=== PATIENT | female | born 1945 | race African-American/Black ===

== ENCOUNTER 2020-09-30 12:16 | Emergency (ER) | payer MEDICARE ==
[2020-09-30 14:10] LABS: ALT (SGPT) 19 U/L (8-55); AST (SGOT) 23 U/L (5-34); Acetaminophen Less than 6.0 mcg/mL (10.0-30.0); Albumin 3.1 g/dL (3.4-4.8); Alcohol Less than 10 mg/dL (Less than 10); Alkaline Phosphatase 116 U/L (40-110); Anion Gap 16 mmol/L (10-20); BUN (Urea Nitrogen) 14 mg/dL (9.8-20.1); Bilirubin, Total 1.2 mg/dL (0.2-1.2); Calc. Creatinine Clearance 0 mL/min (70-130); Calcium 8.5 mg/dL (7.8-10.44); Carbon Dioxide 28 mmol/L (23-31); Chloride 100 mmol/L (98-107); Globulin 3.3 g/dL (2.4-3.5); Glucose 141 mg/dL (83-110); Potassium 3.1 mmol/L (3.5-5.1); Protein, Total 6.4 g/dL (5.8-8.1); Salicylate Less than 8.0 mg/dL (15.0-30.0); Sodium 141 mmol/L (136-145)
[2020-09-30 14:14] LABS: #Monocytes 0.4 10x3/uL (0.0-1.1); #Neutrophils 2.7 10x3/uL (1.5-8.4); %Basophils 0.5 % (0.0-2.0); %Eosinophils 0.3 % (0.0-6.0); %Lymphocytes 21.8 % (18.0-47.0); %Monocytes 9.1 % (0.0-10.0); Hemoglobin 9.5 g/dL (12.0-15.5); Mean Corpuscular HGB CONC 34.9 g/dL (32.0-36.0); Mean Corpuscular Hemoglobin 27.2 pg (27.0-33.0); Mean Corpuscular Volume 77.9 fl (81.6-98.3); Mean Platelet Volume 10.9 fl (7.4-10.4); Platelet Count 83 10x3/uL (150-450); RBC Distribution Width 15.9 % (11.5-14.5); Red Blood Cell (RBC) Count 3.49 10x6/uL (3.90-5.03); White Blood Cell (WBC) Count 3.9 10x3/uL (3.5-10.5)
== END 2020-09-30 15:55 | disposition home or self-care (01) ==
LOC: CSHERS 12:16
DX: R41.82 Altered mental status, unspecified (principal); K74.60 Unspecified cirrhosis of liver; I12.0 Hypertensive chronic kidney disease with stage 5 chronic kidney disease or end stage renal disease; N18.6 End stage renal disease; Z79.899 Other long term (current) drug therapy
CPT/HCPCS: 70450; 80053; 80307; 82140; 85025

== ENCOUNTER 2021-01-27 08:46 | Inpatient (IN) | payer MEDICARE ==
[2021-01-27 09:47] LABS: ALT (SGPT) 28 U/L (8-55); AST (SGOT) 32 U/L (5-34); Albumin 2.8 g/dL (3.4-4.8); Alkaline Phosphatase 180 U/L (40-110); Anion Gap 24 mmol/L (10-20); BUN (Urea Nitrogen) 49 mg/dL (9.8-20.1); Bilirubin, Total 1.2 mg/dL (0.2-1.2); Calc. Creatinine Clearance 0 mL/min (70-130); Calcium 8.3 mg/dL (7.8-10.44); Carbon Dioxide 18 mmol/L (23-31); Chloride 105 mmol/L (98-107); Globulin 3.9 g/dL (2.4-3.5); Glucose 160 mg/dL (83-110); Hemoglobin 10.2 g/dL (12.0-15.5); Mean Corpuscular HGB CONC 35.1 g/dL (32.0-36.0); Mean Corpuscular Hemoglobin 28.5 pg (27.0-33.0); Mean Corpuscular Volume 81.3 fl (81.6-98.3); Mean Platelet Volume 12.9 fl (7.4-10.4); Platelet Count 67 10x3/uL (150-450); Potassium 4.2 mmol/L (3.5-5.1); Protein, Total 6.7 g/dL (5.8-8.1); RBC Distribution Width 16.5 % (11.5-14.5); Red Blood Cell (RBC) Count 3.58 10x6/uL (3.90-5.03); Sodium 143 mmol/L (136-145); White Blood Cell (WBC) Count 3.8 10x3/uL (3.5-10.5)
[2021-01-27 09:51] LABS: #Monocytes 0.3 10x3/uL (0.0-1.1); #Neutrophils 2.6 10x3/uL (1.5-8.4); %Basophils 0.8 % (0.0-2.0); %Lymphocytes 21.9 % (18.0-47.0); %Monocytes 8.9 % (0.0-10.0); %Neutrophils 66.6 % (40.0-75.0)
[2021-01-27 09:52] LABS: Magnesium 3.1 mg/dL (1.6-2.6)
[2021-01-27 09:58] LABS: Phosphorus 9.9 mg/dL (2.3-4.7)
[2021-01-27 11:28] LABS: CKMB 2.2 ng/mL (0-6.6)
[2021-01-27] MEDS ORDERED: Dextrose 5% in Water 1,000 ML IV PRN (11:49)
[2021-01-27] MEDS ORDERED: Dextrose 50% Abboject 50 ML SYRINGE SLOW IVP PRN (11:49)
[2021-01-27] MEDS ORDERED: HumaLOG 300 UNITS/3 ML VIAL SC PRN ×2 (11:49)
[2021-01-27 14:40] VITALS: BMI 26.2
[2021-01-27] MEDS ORDERED: Heparin 10,000 UNITS/ 10 ML VIAL FS SCH (15:00)
[2021-01-27] MEDS: Rifaximin 550 MG TAB PO SCH (23:50)
[2021-01-28 01:10] LABS: SARS-CoV-2 NAA Rapid Test Not Detected (NotDetected)
[2021-01-28] MEDS ORDERED: Nitroglycerin 2% Ointment 1 INCH/1 GM Packet TOP SCH (02:45)
[2021-01-28] MEDS ORDERED: Nitroglycerin 2% Ointment 1 INCH/1 GM Packet ONE (03:12)
[2021-01-28 06:16] LABS: Anion Gap 17 mmol/L (10-20); BUN (Urea Nitrogen) 18 mg/dL (9.8-20.1); Calc. Creatinine Clearance 7 mL/min (70-130); Calcium 8.8 mg/dL (7.8-10.44); Carbon Dioxide 27 mmol/L (23-31); Chloride 101 mmol/L (98-107); Glucose 102 mg/dL (83-110); Potassium 3.6 mmol/L (3.5-5.1); Sodium 141 mmol/L (136-145)
[2021-01-28 06:22] LABS: #Eosinphils 0.1 10x3/uL (0.0-0.5); #Monocytes 0.5 10x3/uL (0.0-1.1); #Neutrophils 1.6 10x3/uL (1.5-8.4); %Basophils 0.6 % (0.0-2.0); %Eosinophils 1.9 % (0.0-6.0); %Lymphocytes 30.3 % (18.0-47.0); %Monocytes 14.8 % (0.0-10.0); %Neutrophils 52.1 % (40.0-75.0); Hemoglobin 9.3 g/dL (12.0-15.5); Mean Corpuscular HGB CONC 33.3 g/dL (32.0-36.0); Mean Corpuscular Hemoglobin 27.2 pg (27.0-33.0); Mean Corpuscular Volume 81.6 fl (81.6-98.3); Mean Platelet Volume 11.3 fl (7.4-10.4); Platelet Count 63 10x3/uL (150-450); RBC Distribution Width 16.9 % (11.5-14.5); Red Blood Cell (RBC) Count 3.42 10x6/uL (3.90-5.03); White Blood Cell (WBC) Count 3.1 10x3/uL (3.5-10.5)
[2021-01-28] MEDS: Rifaximin 550 MG TAB PO SCH (08:28)
[2021-01-28 09:29] LABS: Phosphorus 5.8 mg/dL (2.3-4.7)
[2021-01-28 13:57] LABS: SARS-CoV-2 PCR by NAA Not Detected (NotDetected)
[2021-01-28 15:40] VITALS: BP 146/65; TEMP 98.2
== END 2021-01-28 16:36 | disposition home or self-care (01) | DRG 441 ==
LOC: CSHERS 08:46 → CSHTELE 13:13
PROVIDERS: ADMIT Family Medicine; ATTEND Hospitalist
PROC: 5A1D70Z Performance of Urinary Filtration, Intermittent, Less than 6 Hours Per Day (ICD-10-PCS; principal; 2021-01-28)
DX: K72.00 Acute and subacute hepatic failure without coma (principal); N18.6 End stage renal disease; K76.6 Portal hypertension; I85.00 Esophageal varices without bleeding; I12.0 Hypertensive chronic kidney disease with stage 5 chronic kidney disease or end stage renal disease; K70.30 Alcoholic cirrhosis of liver without ascites; K31.89 Other diseases of stomach and duodenum; E11.22 Type 2 diabetes mellitus with diabetic chronic kidney disease; E11.65 Type 2 diabetes mellitus with hyperglycemia; Z99.2 Dependence on renal dialysis; Z79.4 Long term (current) use of insulin; D63.1 Anemia in chronic kidney disease; E11.40 Type 2 diabetes mellitus with diabetic neuropathy, unspecified; E83.39 Other disorders of phosphorus metabolism; Z20.822 Contact with and (suspected) exposure to COVID-19
CPT/HCPCS: 36415; 36416; 71045; 80048; 80053; 82140; 82553; 83735; 84100; 84484; 85025; 90935; 93005; 93010; 94760; G0257; J1644; U0002; U0003; U0005

== ENCOUNTER 2021-05-17 09:02 | Inpatient (IN) | payer MEDICARE ==
[2021-05-17 09:55] LABS: #Monocytes 0.3 10x3/uL (0.0-1.1); %Basophils 0.7 % (0.0-2.0); %Eosinophils 0.7 % (0.0-6.0); %Lymphocytes 14.6 % (18.0-47.0); %Monocytes 11.7 % (0.0-10.0); %Neutrophils 71.9 % (40.0-75.0)
[2021-05-17 09:56] LABS: Hemoglobin 8.6 g/dL (12.0-15.5); Mean Corpuscular HGB CONC 33.7 g/dL (32.0-36.0); Mean Corpuscular Hemoglobin 24.6 pg (27.0-33.0); Mean Corpuscular Volume 73.1 fl (81.6-98.3); Mean Platelet Volume 10.7 fl (7.4-10.4); Platelet Count 89 10x3/uL (150-450); RBC Distribution Width 17.5 % (11.5-14.5); Red Blood Cell (RBC) Count 3.49 10x6/uL (3.90-5.03); White Blood Cell (WBC) Count 2.7 10x3/uL (3.5-10.5)
[2021-05-17 10:00] LABS: ALT (SGPT) 15 U/L (8-55); AST (SGOT) 31 U/L (5-34); Albumin 2.9 g/dL (3.4-4.8); Alkaline Phosphatase 182 U/L (40-110); Anion Gap 18 mmol/L (10-20); BUN (Urea Nitrogen) 33 mg/dL (9.8-20.1); Calc. Creatinine Clearance 0 mL/min (70-130); Calcium 9.6 mg/dL (7.8-10.44); Carbon Dioxide 24 mmol/L (23-31); Chloride 105 mmol/L (98-107); Globulin 4.4 g/dL (2.4-3.5); Glucose 244 mg/dL (83-110); Potassium 5.1 mmol/L (3.5-5.1); Protein, Total 7.3 g/dL (5.8-8.1); Sodium 142 mmol/L (136-145)
[2021-05-17] MEDS ORDERED: Lorazepam 2 MG/ML VIAL ONE (13:21)
[2021-05-17] MEDS ORDERED: Lorazepam 2 MG/ML VIAL SLOW IVP SCH (15:00)
[2021-05-17 15:56] VITALS: BMI 28.0
[2021-05-17] MEDS: Heparin 5,000 UNITS/ML VIAL SC SCH (17:10)
[2021-05-17] MEDS ORDERED: FLU VACC QS2021-22(65YR UP)/PF 240 MCG/0.7 ML SYRINGE IM ONE (19:15)
[2021-05-17] MEDS: Simvastatin 10 MG TAB PO SCH (21:01)
[2021-05-17] MEDS: Rifaximin 550 MG TAB PO SCH (21:02)
[2021-05-17] MEDS: Carvedilol 3.125 MG TAB PO SCH (21:02)
[2021-05-18] MEDS: Heparin 5,000 UNITS/ML VIAL SC SCH (02:58)
[2021-05-18 03:47] LABS: Anion Gap 15 mmol/L (10-20); BUN (Urea Nitrogen) 13 mg/dL (9.8-20.1); Calc. Creatinine Clearance 15 mL/min (70-130); Calcium 8.7 mg/dL (7.8-10.44); Carbon Dioxide 24 mmol/L (23-31); Chloride 104 mmol/L (98-107); Glucose 133 mg/dL (83-110); Potassium 3.8 mmol/L (3.5-5.1); Sodium 139 mmol/L (136-145)
[2021-05-18 03:55] LABS: #Monocytes 0.3 10x3/uL (0.0-1.1); %Basophils 0.4 % (0.0-2.0); %Eosinophils 1.3 % (0.0-6.0); %Monocytes 15.2 % (0.0-10.0); Hemoglobin 7.6 g/dL (12.0-15.5); Mean Corpuscular HGB CONC 33.6 g/dL (32.0-36.0); Mean Corpuscular Hemoglobin 24.8 pg (27.0-33.0); Mean Corpuscular Volume 73.6 fl (81.6-98.3); Mean Platelet Volume 11.6 fl (7.4-10.4); Platelet Count 80 10x3/uL (150-450); RBC Distribution Width 17.8 % (11.5-14.5); Red Blood Cell (RBC) Count 3.07 10x6/uL (3.90-5.03); White Blood Cell (WBC) Count 2.2 10x3/uL (3.5-10.5)
[2021-05-18] MEDS: Levothyroxine Sodium 88 MCG TAB PO SCH (05:39)
[2021-05-18] MEDS ORDERED: Iron Sucrose Complex 200 MG in Sodium Chloride 0.9% 100 ML IVPB SCH (06:30)
[2021-05-18] MEDS ORDERED: Iron, Sodium Ferric Gluconate 250 MG, Admixture Fee 1 EACH in Sodium Chloride 0.9% 250 ... IVPB SCH (08:00)
[2021-05-18] MEDS: Rifaximin 550 MG TAB PO SCH ×2 (08:58→21:40)
[2021-05-18] MEDS: Spironolactone 25 MG TAB PO SCH (08:58)
[2021-05-18] MEDS: Thiamine 100 MG TAB PO SCH (08:59)
[2021-05-18] MEDS: Carvedilol 3.125 MG TAB PO SCH ×2 (08:59→21:40)
[2021-05-18] MEDS: Furosemide 40 MG TAB PO SCH (08:59)
[2021-05-18] MEDS ORDERED: EPOETIN ALFA-EPBX (ESRD) 10,000 UNIT/ML VIAL SC SCH (09:00)
[2021-05-18 12:18] LABS: SARS-CoV-2 PCR by NAA Not Detected (NotDetected)
[2021-05-18] MEDS ORDERED: Dextrose 5% in Water 1,000 ML IV PRN (14:00)
[2021-05-18] MEDS ORDERED: Dextrose 50% Abboject 50 ML SYRINGE IVP PRN (14:00)
[2021-05-18] MEDS: HumaLOG 300 UNITS/3 ML VIAL SC PRN ×2 (14:21→21:52)
[2021-05-18 16:08] LABS: Hemoglobin 6.8 g/dL (12.0-15.5)
[2021-05-18] MEDS: Benzonatate 100 MG CAP PO PRN ×2 (16:10→21:51)
[2021-05-18] MEDS: Cepastat Lozenges 1 LOZ PO PRN ×2 (17:56→21:52)
[2021-05-18] MEDS: Pantoprazole 40 MG VIAL IVP SCH (21:38)
[2021-05-18] MEDS: Simvastatin 10 MG TAB PO SCH (21:40)
[2021-05-18 21:55] LABS: Hemoglobin 7.2 g/dL (12.0-15.5)
[2021-05-19 04:35] LABS: Hemoglobin 7.7 g/dL (12.0-15.5); Mean Corpuscular HGB CONC 33.6 g/dL (32.0-36.0); Mean Corpuscular Hemoglobin 25.4 pg (27.0-33.0); Mean Corpuscular Volume 75.6 fl (81.6-98.3); Mean Platelet Volume 11.4 fl (7.4-10.4); Platelet Count 80 10x3/uL (150-450); RBC Distribution Width 17.9 % (11.5-14.5); Red Blood Cell (RBC) Count 3.03 10x6/uL (3.90-5.03)
[2021-05-19 04:37] LABS: Anion Gap 15 mmol/L (10-20); BUN (Urea Nitrogen) 22 mg/dL (9.8-20.1); Calc. Creatinine Clearance 9 mL/min (70-130); Carbon Dioxide 23 mmol/L (23-31); Chloride 105 mmol/L (98-107); Glucose 196 mg/dL (83-110); Potassium 3.7 mmol/L (3.5-5.1); Sodium 139 mmol/L (136-145)
[2021-05-19 05:01] LABS: MDiff Complete? YES
[2021-05-19 05:03] LABS: Hypochromia MODERATE=16-30 cells (100X) (0-5/hpf); Microcytosis SLIGHT = 6-15 cells (100X) (0-5/hpf); Platelet Morphology Comment Appears Decreased
[2021-05-19 05:11] LABS: Eosinophils 2 % (0-10); Lymphocytes 20 % (21-51); Monocytes 14 % (0-10); Neutrophil 64 % (42-75)
[2021-05-19] MEDS: Levothyroxine Sodium 88 MCG TAB PO SCH (05:57)
[2021-05-19] MEDS: Carvedilol 3.125 MG TAB PO SCH ×2 (05:57→21:29)
[2021-05-19] MEDS ORDERED: Lidocaine 1% PF 5 ML VIAL ONE (08:46)
[2021-05-19] MEDS ORDERED: PROPOFOL 20 ML ONE (08:46)
[2021-05-19 10:36] LABS: Hemoglobin 8.1 g/dL (12.0-15.5)
[2021-05-19] MEDS: Thiamine 100 MG TAB PO SCH (10:36)
[2021-05-19] MEDS: Rifaximin 550 MG TAB PO SCH ×2 (10:37→21:29)
[2021-05-19] MEDS: Furosemide 40 MG TAB PO SCH (10:37)
[2021-05-19] MEDS: Spironolactone 25 MG TAB PO SCH (10:37)
[2021-05-19] MEDS: Pantoprazole 40 MG VIAL IVP SCH ×2 (10:39→21:29)
[2021-05-19] MEDS: Cepastat Lozenges 1 LOZ PO PRN (10:47)
[2021-05-19 14:38] LABS: Hemoglobin 7.3 g/dL (12.0-15.5)
[2021-05-19] MEDS: HumaLOG 300 UNITS/3 ML VIAL SC PRN (17:04)
[2021-05-19] MEDS: Simvastatin 10 MG TAB PO SCH (21:29)
[2021-05-19 22:16] LABS: Hemoglobin 7.8 g/dL (12.0-15.5)
[2021-05-19] MEDS: Benzonatate 100 MG CAP PO PRN (22:58)
[2021-05-20 04:40] LABS: #Monocytes 0.4 10x3/uL (0.0-1.1); #Neutrophils 2.1 10x3/uL (1.5-8.4); %Basophils 0.7 % (0.0-2.0); %Eosinophils 1.3 % (0.0-6.0); %Lymphocytes 15.4 % (18.0-47.0); %Monocytes 12.4 % (0.0-10.0); %Neutrophils 69.5 % (40.0-75.0); Hemoglobin 7.5 g/dL (12.0-15.5); Mean Corpuscular HGB CONC 33.6 g/dL (32.0-36.0); Mean Corpuscular Hemoglobin 25.3 pg (27.0-33.0); Mean Corpuscular Volume 75.1 fl (81.6-98.3); Mean Platelet Volume 11.2 fl (7.4-10.4); Platelet Count 73 10x3/uL (150-450); RBC Distribution Width 17.9 % (11.5-14.5); Red Blood Cell (RBC) Count 2.97 10x6/uL (3.90-5.03); White Blood Cell (WBC) Count 3.1 10x3/uL (3.5-10.5)
[2021-05-20 04:42] LABS: Anion Gap 12 mmol/L (10-20); BUN (Urea Nitrogen) 14 mg/dL (9.8-20.1); Calc. Creatinine Clearance 13 mL/min (70-130); Calcium 8.6 mg/dL (7.8-10.44); Carbon Dioxide 25 mmol/L (23-31); Chloride 100 mmol/L (98-107); Glucose 273 mg/dL (83-110); Potassium 3.8 mmol/L (3.5-5.1); Sodium 133 mmol/L (136-145)
[2021-05-20] MEDS: Levothyroxine Sodium 88 MCG TAB PO SCH (06:19)
[2021-05-20] MEDS: HumaLOG 300 UNITS/3 ML VIAL SC PRN ×2 (06:21→15:20)
[2021-05-20] MEDS ORDERED: Iron, Sodium Ferric Gluconate 250 MG in Sodium Chloride 0.9% 250 ML 250 ML IVPB SCH (07:30)
[2021-05-20] MEDS: Spironolactone 25 MG TAB PO SCH (09:30)
[2021-05-20] MEDS: Benzonatate 100 MG CAP PO PRN ×2 (09:30→15:21)
[2021-05-20] MEDS: Pantoprazole 40 MG VIAL IVP SCH (09:30)
[2021-05-20] MEDS: Carvedilol 3.125 MG TAB PO SCH (09:30)
[2021-05-20] MEDS: Cepastat Lozenges 1 LOZ PO PRN ×2 (09:30→15:21)
[2021-05-20] MEDS: Thiamine 100 MG TAB PO SCH (09:30)
[2021-05-20] MEDS: Rifaximin 550 MG TAB PO SCH (09:30)
[2021-05-20] MEDS: Furosemide 40 MG TAB PO SCH (09:30)
[2021-05-20 13:06] LABS: Hemoglobin 8.3 g/dL (12.0-15.5)
[2021-05-20 15:40] VITALS: BP 131/55; TEMP 98.1
== END 2021-05-20 19:36 | disposition home or self-care (01) | DRG 441 ==
LOC: CSHERS 09:02 → CSHTELE 13:32
PROVIDERS: ADMIT Family Medicine; ATTEND Physician Assistant
PROC: 5A1D70Z Performance of Urinary Filtration, Intermittent, Less than 6 Hours Per Day (ICD-10-PCS; 2021-05-17)
PROC: 0DJ08ZZ Inspection of Upper Intestinal Tract, Via Natural or Artificial Opening Endoscopic (ICD-10-PCS; principal; 2021-05-19)
PROC: 30233N1 Transfusion of Nonautologous Red Blood Cells into Peripheral Vein, Percutaneous Approach (ICD-10-PCS; 2021-05-19)
PROC: 5A1D70Z Performance of Urinary Filtration, Intermittent, Less than 6 Hours Per Day (ICD-10-PCS; 2021-05-19)
DX: K72.90 Hepatic failure, unspecified without coma (principal); N18.6 End stage renal disease; I12.0 Hypertensive chronic kidney disease with stage 5 chronic kidney disease or end stage renal disease; K92.1 Melena; K76.6 Portal hypertension; D61.818 Other pancytopenia; D62 Acute posthemorrhagic anemia; E78.5 Hyperlipidemia, unspecified; E11.22 Type 2 diabetes mellitus with diabetic chronic kidney disease; K70.30 Alcoholic cirrhosis of liver without ascites; D63.1 Anemia in chronic kidney disease; E03.9 Hypothyroidism, unspecified; E11.65 Type 2 diabetes mellitus with hyperglycemia; K31.89 Other diseases of stomach and duodenum; Z20.822 Contact with and (suspected) exposure to COVID-19; Z79.4 Long term (current) use of insulin; Z79.899 Other long term (current) drug therapy; Z99.2 Dependence on renal dialysis; Z90.710 Acquired absence of both cervix and uterus
CPT/HCPCS: 36415; 36416; 36430; 51701; 70450; 71045; 80048; 80053; 82140; 82274; 84443; 85025; 86850; 86900; 86901; 86922; 90935; 93005; C9113; G0257; J1644; J1815; J2060; J2704; J2916; J7050; P9016; Q5105; U0003; U0005

== ENCOUNTER 2021-07-10 14:48 | Observation (INO) | payer MEDICARE ==
[2021-07-10 15:57] LABS: #Eosinphils 0.1 10x3/uL (0.0-0.5); #Monocytes 0.3 10x3/uL (0.0-1.1); #Neutrophils 2.7 10x3/uL (1.5-8.4); %Basophils 0.3 % (0.0-2.0); %Eosinophils 1.5 % (0.0-6.0); %Lymphocytes 6.6 % (18.0-47.0); %Monocytes 9.9 % (0.0-10.0); %Neutrophils 81.1 % (40.0-75.0); Hemoglobin 5.3 g/dL (12.0-15.5); Mean Corpuscular HGB CONC 33.1 g/dL (32.0-36.0); Mean Corpuscular Hemoglobin 25.1 pg (27.0-33.0); Mean Corpuscular Volume 75.8 fl (81.6-98.3); Red Blood Cell (RBC) Count 2.11 10x6/uL (3.90-5.03); White Blood Cell (WBC) Count 3.3 10x3/uL (3.5-10.5)
[2021-07-10 15:58] LABS: Platelet Count 73 10x3/uL (150-450)
[2021-07-10 16:10] LABS: ALT (SGPT) 16 U/L (8-55); AST (SGOT) 28 U/L (5-34); Albumin 1.9 g/dL (3.4-4.8); Alkaline Phosphatase 195 U/L (40-110); Anion Gap 16 mmol/L (10-20); BUN (Urea Nitrogen) 30 mg/dL (9.8-20.1); Bilirubin, Total 1.4 mg/dL (0.2-1.2); Calc. Creatinine Clearance 0 mL/min (70-130); Calcium 8.3 mg/dL (7.8-10.44); Carbon Dioxide 21 mmol/L (23-31); Chloride 105 mmol/L (98-107); Globulin 4.1 g/dL (2.4-3.5); Glucose 357 mg/dL (83-110); Potassium 5.2 mmol/L (3.5-5.1); Sodium 137 mmol/L (136-145)
[2021-07-10 16:20] LABS: Hypochromia SLIGHT = 6-15 cells (100X) (0-5/hpf); Target Cells SLIGHT = 2-5 cells (100X) (0-1/hpf)
[2021-07-10 16:24] LABS: Platelet Morphology Comment Appears Decreased
[2021-07-10] MEDS ORDERED: Acetaminophen 650 MG Suppository PR PRN (18:22)
[2021-07-10] MEDS ORDERED: Acetaminophen 325 MG TAB PO PRN (18:22)
[2021-07-10] MEDS ORDERED: Ondansetron ODT 4 MG TAB PO PRN (18:22)
[2021-07-10] MEDS ORDERED: Ondansetron PF 4 MG/2 ML Vial IVP PRN (18:22)
[2021-07-10] MEDS ORDERED: Simvastatin 10 MG TAB PO SCH (21:00)
[2021-07-10 21:15] LABS: SARS-CoV-2 NAA Rapid Test DETECTED (NotDetected)
[2021-07-10] MEDS: Rifaximin 550 MG TAB PO SCH (23:16)
[2021-07-11] MEDS ORDERED: Levothyroxine Sodium 75 MCG TAB PO SCH (06:00)
[2021-07-11 06:31] LABS: #Monocytes 0.3 10x3/uL (0.0-1.1); %Basophils 0.8 % (0.0-2.0); %Eosinophils 1.5 % (0.0-6.0); %Lymphocytes 9.9 % (18.0-47.0); %Monocytes 12.5 % (0.0-10.0); %Neutrophils 74.9 % (40.0-75.0); Hemoglobin 7.1 g/dL (12.0-15.5); Mean Corpuscular Hemoglobin 26.9 pg (27.0-33.0); Mean Corpuscular Volume 79.2 fl (81.6-98.3); Platelet Count 64 10x3/uL (150-450); RBC Distribution Width 17.1 % (11.5-14.5); Red Blood Cell (RBC) Count 2.64 10x6/uL (3.90-5.03); White Blood Cell (WBC) Count 2.6 10x3/uL (3.5-10.5)
[2021-07-11 06:53] LABS: Anion Gap 13 mmol/L (10-20); BUN (Urea Nitrogen) 16 mg/dL (9.8-20.1); Calc. Creatinine Clearance 0 mL/min (70-130); Calcium 7.8 mg/dL (7.8-10.44); Carbon Dioxide 24 mmol/L (23-31); Chloride 107 mmol/L (98-107); Glucose 285 mg/dL (83-110); Potassium 4.3 mmol/L (3.5-5.1); Sodium 140 mmol/L (136-145)
[2021-07-11] MEDS ORDERED: Amlodipine 5 MG TAB ONE (07:57)
[2021-07-11] MEDS: Rifaximin 550 MG TAB PO SCH (08:56)
[2021-07-11 08:57] VITALS: BP 137/59
[2021-07-11] MEDS ORDERED: Lantus 1000 UNITS/10 ML VIAL SC SCH ×2 (09:00→21:00)
[2021-07-11] MEDS ORDERED: Amlodipine 5 MG TAB PO SCH (09:00)
[2021-07-11] MEDS ORDERED: Insulin Regular 300 UNITS/3 ML VIAL SC PRN ×2 (09:16)
[2021-07-11] MEDS ORDERED: Dextrose 5% in Water 1,000 ML IV PRN (09:16)
[2021-07-11] MEDS ORDERED: Dextrose 50% Abboject 50 ML SYRINGE SLOW IVP PRN (09:16)
[2021-07-11 09:35] LABS: Iron 93 ug/dL (50-170); Iron Binding Capacity, Total 121 mcg/dL (265-497)
[2021-07-11 16:44] LABS: #Monocytes 0.5 10x3/uL (0.0-1.1); #Neutrophils 2.7 10x3/uL (1.5-8.4); %Basophils 0.6 % (0.0-2.0); %Eosinophils 1.2 % (0.0-6.0); %Lymphocytes 6.4 % (18.0-47.0); %Monocytes 13.4 % (0.0-10.0); %Neutrophils 77.5 % (40.0-75.0); Hemoglobin 8.6 g/dL (12.0-15.5); Mean Corpuscular HGB CONC 33.7 g/dL (32.0-36.0); Mean Corpuscular Volume 79.9 fl (81.6-98.3); Platelet Count 72 10x3/uL (150-450); RBC Distribution Width 17.7 % (11.5-14.5); Red Blood Cell (RBC) Count 3.19 10x6/uL (3.90-5.03); White Blood Cell (WBC) Count 3.4 10x3/uL (3.5-10.5)
== END 2021-07-11 17:17 | disposition home or self-care (01) ==
LOC: CSHERS 14:48 → CSHERHOLD 18:12 → INTOOBSV 20:16 → UNDOADMOB 20:16 → CSHERHOLD 20:16
PROVIDERS: ADMIT Family Medicine; ATTEND Physician Assistant
DX: E11.22 Type 2 diabetes mellitus with diabetic chronic kidney disease (principal); I12.0 Hypertensive chronic kidney disease with stage 5 chronic kidney disease or end stage renal disease; N18.6 End stage renal disease; D63.1 Anemia in chronic kidney disease; U07.1 COVID-19; K70.30 Alcoholic cirrhosis of liver without ascites; D61.818 Other pancytopenia; E87.5 Hyperkalemia; E03.9 Hypothyroidism, unspecified; E78.5 Hyperlipidemia, unspecified
CPT/HCPCS: 36430 ×2; 80048; 80053; 82607; 82728; 82746; 83540; 83550; 84443; 85025 ×3; 86850; 86900; 86901; 86902; 86920; 86922; 99284; G0378 ×2; P9016 ×2; U0002; 36415; 90935; G0257; J1815

== ENCOUNTER 2021-07-17 11:41 | Observation (INO) | payer MEDICARE ==
[2021-07-17 12:42] LABS: #Eosinphils 0.1 10x3/uL (0.0-0.5); #Monocytes 0.4 10x3/uL (0.0-1.1); #Neutrophils 2.3 10x3/uL (1.5-8.4); %Basophils 0.7 % (0.0-2.0); %Eosinophils 1.6 % (0.0-6.0); %Lymphocytes 8.1 % (18.0-47.0); %Monocytes 14.3 % (0.0-10.0); Hemoglobin 8.7 g/dL (12.0-15.5); Mean Corpuscular HGB CONC 34.9 g/dL (32.0-36.0); Mean Corpuscular Hemoglobin 27.8 pg (27.0-33.0); Mean Corpuscular Volume 79.6 fl (81.6-98.3); Mean Platelet Volume 11.5 fl (7.4-10.4); Platelet Count 67 10x3/uL (150-450); RBC Distribution Width 19.9 % (11.5-14.5); Red Blood Cell (RBC) Count 3.13 10x6/uL (3.90-5.03); White Blood Cell (WBC) Count 3.1 10x3/uL (3.5-10.5)
[2021-07-17 12:46] LABS: ALT (SGPT) 19 U/L (8-55); AST (SGOT) 35 U/L (5-34); Alkaline Phosphatase 250 U/L (40-110); Anion Gap 12 mmol/L (10-20); BUN (Urea Nitrogen) 11 mg/dL (9.8-20.1); Bilirubin, Total 1.6 mg/dL (0.2-1.2); Calc. Creatinine Clearance 0 mL/min (70-130); Calcium 7.5 mg/dL (7.8-10.44); Carbon Dioxide 24 mmol/L (23-31); Chloride 104 mmol/L (98-107); Globulin 4.7 g/dL (2.4-3.5); Glucose 108 mg/dL (83-110); Potassium 4.4 mmol/L (3.5-5.1); Protein, Total 6.7 g/dL (5.8-8.1); Sodium 136 mmol/L (136-145)
[2021-07-17 12:55] LABS: Platelet Morphology Comment Appears Decreased
[2021-07-17 12:56] LABS: Ovalocytes SLIGHT = 2-5 cells (100X) (0-1/hpf)
[2021-07-17] MEDS ORDERED: Azithromycin 500 MG VIAL ONE (13:54)
[2021-07-17] MEDS ORDERED: cefTRIAXone\\ROCEPHIN 1 GM VIAL ONE (13:54)
[2021-07-17 14:09] LABS: SARS-CoV-2 NAA Rapid Test DETECTED (NotDetected)
[2021-07-17] MEDS ORDERED: Ondansetron PF 4 MG/2 ML Vial IVP PRN (17:01)
[2021-07-17] MEDS ORDERED: Acetaminophen 325 MG TAB PO PRN (17:01)
[2021-07-17] MEDS ORDERED: Dextrose 50% Abboject 50 ML SYRINGE SLOW IVP PRN (17:14)
[2021-07-17] MEDS ORDERED: Dextrose 5% in Water 1,000 ML IV PRN (17:14)
[2021-07-17] MEDS ORDERED: Sodium Chloride 0.9% 1,000 ML IV SCH (17:15)
[2021-07-17 18:28] LABS: Lactic Acid 3.3 mmol/L (0.5-2.2)
[2021-07-17] MEDS: guaiFENesin ER 600 MG TAB PO SCH (23:04)
[2021-07-17] MEDS: Simvastatin 10 MG TAB PO SCH (23:05)
[2021-07-17] MEDS: Rifaximin 550 MG TAB PO SCH (23:05)
[2021-07-17] MEDS: HumaLOG 300 UNITS/3 ML VIAL SC PRN (23:06)
[2021-07-17] MEDS: Lantus 1000 UNITS/10 ML VIAL SC SCH (23:06)
[2021-07-17] MEDS: Carvedilol 3.125 MG TAB PO SCH (23:07)
[2021-07-18 00:41] VITALS: BMI 25.8
[2021-07-18] MEDS: Levothyroxine Sodium 75 MCG TAB PO SCH (05:24)
[2021-07-18 05:31] LABS: #Eosinphils 0.1 10x3/uL (0.0-0.5); #Monocytes 0.4 10x3/uL (0.0-1.1); %Basophils 0.1 % (0.0-2.0); %Lymphocytes 3.8 % (18.0-47.0); %Neutrophils 88.7 % (40.0-75.0); Hemoglobin 7.9 g/dL (12.0-15.5); Mean Corpuscular HGB CONC 33.5 g/dL (32.0-36.0); Mean Corpuscular Hemoglobin 27.5 pg (27.0-33.0); Mean Corpuscular Volume 82.2 fl (81.6-98.3); RBC Distribution Width 20.4 % (11.5-14.5); Red Blood Cell (RBC) Count 2.87 10x6/uL (3.90-5.03); White Blood Cell (WBC) Count 6.8 10x3/uL (3.5-10.5)
[2021-07-18 05:36] LABS: Anion Gap 12 mmol/L (10-20); BUN (Urea Nitrogen) 20 mg/dL (9.8-20.1); Calc. Creatinine Clearance 10 mL/min (70-130); Calcium 7.9 mg/dL (7.8-10.44); Carbon Dioxide 25 mmol/L (23-31); Chloride 107 mmol/L (98-107); Glucose 160 mg/dL (83-110); Potassium 4.8 mmol/L (3.5-5.1); Sodium 139 mmol/L (136-145)
[2021-07-18 05:51] LABS: Platelet Count 60 10x3/uL (150-450)
[2021-07-18] MEDS ORDERED: Enoxaparin Sodium 30 MG/0.3 ML SYRINGE SC SCH (09:00)
[2021-07-18] MEDS ORDERED: EPOETIN ALFA-EPBX (ESRD) 10,000 UNIT/ML VIAL SC SCH (09:00)
[2021-07-18] MEDS: Zinc Sulfate 220 MG CAP PO SCH (09:12)
[2021-07-18] MEDS: Cholecalciferol 1,000 UNITS (25 MCG) TAB PO SCH (09:13)
[2021-07-18] MEDS: Rifaximin 550 MG TAB PO SCH ×2 (09:13→21:11)
[2021-07-18] MEDS: guaiFENesin ER 600 MG TAB PO SCH ×2 (09:13→21:11)
[2021-07-18] MEDS: Ascorbic Acid 500 mg Chewable Tablet PO SCH (09:13)
[2021-07-18] MEDS: Amlodipine 5 MG TAB PO SCH (09:13)
[2021-07-18] MEDS: Carvedilol 3.125 MG TAB PO SCH ×2 (09:13→21:11)
[2021-07-18] MEDS: Lantus 1000 UNITS/10 ML VIAL SC SCH ×2 (09:14→21:12)
[2021-07-18 11:07] LABS: Lactic Acid 2.5 mmol/L (0.5-2.2)
[2021-07-18] MEDS ORDERED: Sodium Chloride 0.9% 1,000 ML IV SCH ×3 (12:00→17:45)
[2021-07-18] MEDS ORDERED: cefTRIAXone\\ROCEPHIN 1 GM in Sodium Chloride 0.9% 100 ML IVPB SCH (14:00)
[2021-07-18] MEDS ORDERED: Azithromycin 500 MG in Sodium Chloride 0.9% 250 ML 250 ML IVPB SCH (14:00)
[2021-07-18 16:50] LABS: Lactic Acid 2.8 mmol/L (0.5-2.2)
[2021-07-18] MEDS: HumaLOG 300 UNITS/3 ML VIAL SC PRN ×2 (17:00→21:12)
[2021-07-18] MEDS: Heparin 5,000 UNITS/ML VIAL SC SCH (21:10)
[2021-07-18] MEDS: Simvastatin 10 MG TAB PO SCH (21:11)
[2021-07-19] MEDS: Levothyroxine Sodium 75 MCG TAB PO SCH (06:21)
[2021-07-19] MEDS: HumaLOG 300 UNITS/3 ML VIAL SC PRN ×2 (06:21→13:30)
[2021-07-19 06:34] LABS: Lactic Acid 2.1 mmol/L (0.5-2.2)
[2021-07-19 06:35] LABS: Anion Gap 14 mmol/L (10-20); BUN (Urea Nitrogen) 27 mg/dL (9.8-20.1); Calc. Creatinine Clearance 8 mL/min (70-130); Carbon Dioxide 22 mmol/L (23-31); Chloride 105 mmol/L (98-107); Glucose 227 mg/dL (83-110); Potassium 4.5 mmol/L (3.5-5.1); Sodium 136 mmol/L (136-145)
[2021-07-19 07:11] LABS: Mean Corpuscular HGB CONC 32.5 g/dL (32.0-36.0); Mean Corpuscular Hemoglobin 26.8 pg (27.0-33.0); Mean Corpuscular Volume 82.6 fl (81.6-98.3); Platelet Count 61 10x3/uL (150-450); RBC Distribution Width 20.3 % (11.5-14.5); Red Blood Cell (RBC) Count 2.98 10x6/uL (3.90-5.03); White Blood Cell (WBC) Count 5.3 10x3/uL (3.5-10.5)
[2021-07-19 09:13] VITALS: TEMP 99.2
[2021-07-19] MEDS: Zinc Sulfate 220 MG CAP PO SCH (13:29)
[2021-07-19] MEDS: Heparin 5,000 UNITS/ML VIAL SC SCH (13:29)
[2021-07-19] MEDS: Ascorbic Acid 500 mg Chewable Tablet PO SCH (13:29)
[2021-07-19] MEDS: Carvedilol 3.125 MG TAB PO SCH (13:29)
[2021-07-19] MEDS: Cholecalciferol 1,000 UNITS (25 MCG) TAB PO SCH (13:29)
[2021-07-19] MEDS: guaiFENesin ER 600 MG TAB PO SCH (13:29)
[2021-07-19] MEDS: Amlodipine 5 MG TAB PO SCH (13:29)
[2021-07-19 13:31] VITALS: BP 128/55
[2021-07-19] MEDS: Lantus 1000 UNITS/10 ML VIAL SC SCH (13:38)
[2021-07-19] MEDS: Rifaximin 550 MG TAB PO SCH (13:55)
== END 2021-07-19 13:30 | disposition home or self-care (01) ==
LOC: CSHERS 11:41 → CSHTELE 22:40
PROVIDERS: ADMIT Internal Medicine; ATTEND Internal Medicine
DX: U07.1 COVID-19 (principal); J12.82 Pneumonia due to coronavirus disease 2019; G92.8 Other toxic encephalopathy; E11.22 Type 2 diabetes mellitus with diabetic chronic kidney disease; N18.6 End stage renal disease; K70.30 Alcoholic cirrhosis of liver without ascites; C22.0 Liver cell carcinoma; D63.1 Anemia in chronic kidney disease; Z79.899 Other long term (current) drug therapy; Z79.4 Long term (current) use of insulin
CPT/HCPCS: 70450; 71045; 80048 ×2; 80053; 82140; 82962 ×3; 83605 ×3; 85025 ×2; 85027; 87040; 93005; 94760; 96372; 97116; 97139 ×4; G0378 ×4; Q5105; U0002; 36415; 36416; 90935; G0257; J0456; J0696; J1644; J1815; J7050

== ENCOUNTER 2021-07-26 14:48 | Emergency (ER) | payer MEDICARE ==
[2021-07-26 18:22] LABS: INR-International Normal Ratio 1.1; PTT 31.7 sec (22.0-33.0); Prothrombin Time 12.6 sec (9.5-12.1)
[2021-07-26 18:26] LABS: ALT (SGPT) 21 U/L (8-55); AST (SGOT) 32 U/L (5-34); Albumin 1.8 g/dL (3.4-4.8); Alkaline Phosphatase 301 U/L (40-110); Anion Gap 14 mmol/L (10-20); BUN (Urea Nitrogen) 11 mg/dL (9.8-20.1); Bilirubin, Total 1.3 mg/dL (0.2-1.2); Calc. Creatinine Clearance 0 mL/min (70-130); Calcium 8.2 mg/dL (7.8-10.44); Carbon Dioxide 23 mmol/L (23-31); Chloride 101 mmol/L (98-107); Globulin 4.6 g/dL (2.4-3.5); Glucose 371 mg/dL (83-110); Potassium 4.2 mmol/L (3.5-5.1); Protein, Total 6.4 g/dL (5.8-8.1); Sodium 134 mmol/L (136-145)
[2021-07-26 18:33] LABS: White Blood Cell (WBC) Count 3.1 10x3/uL (3.5-10.5)
[2021-07-26 18:34] LABS: #Monocytes 0.4 10x3/uL (0.0-1.1); #Neutrophils 2.4 10x3/uL (1.5-8.4); %Basophils 0.7 % (0.0-2.0); %Eosinophils 1.3 % (0.0-6.0); %Lymphocytes 8.2 % (18.0-47.0); %Monocytes 11.5 % (0.0-10.0); %Neutrophils 77.6 % (40.0-75.0); Hemoglobin 6.5 g/dL (12.0-15.5); Mean Corpuscular HGB CONC 33.7 g/dL (32.0-36.0); Mean Corpuscular Hemoglobin 27.4 pg (27.0-33.0); Mean Corpuscular Volume 81.4 fl (81.6-98.3); Mean Platelet Volume 11.6 fl (7.4-10.4); Platelet Count 63 10x3/uL (150-450); RBC Distribution Width 19.2 % (11.5-14.5); Red Blood Cell (RBC) Count 2.37 10x6/uL (3.90-5.03)
[2021-07-26 18:56] LABS: Anisocytosis SLIGHT = 6-15 cells (100X) (0-5/hpf); Hypochromia SLIGHT = 6-15 cells (100X) (0-5/hpf); Ovalocytes SLIGHT = 2-5 cells (100X) (0-1/hpf); Tear Drops SLIGHT = 2-5 cells (100X) (0-1/hpf)
[2021-07-26 18:57] LABS: Platelet Morphology Comment Appears Decreased
== END 2021-07-26 21:41 | disposition home or self-care (01) ==
LOC: CSHERS 14:48
DX: I12.0 Hypertensive chronic kidney disease with stage 5 chronic kidney disease or end stage renal disease (principal); D63.1 Anemia in chronic kidney disease; N18.6 End stage renal disease
CPT/HCPCS: 36430; 80053; 82962; 85025; 85610; 85730; 86850; 86900; 86901; 86902; 86920; 86922; P9016; 36415; 36416; 99284

== ENCOUNTER 2021-09-08 08:39 | Inpatient (IN) | payer MEDICARE, OTHER ==
[2021-09-08 09:14] LABS: #Monocytes 0.2 10x3/uL (0.0-1.1); #Neutrophils 1.4 10x3/uL (1.5-8.4); %Basophils 1.4 % (0.0-2.0); %Eosinophils 1.4 % (0.0-6.0); %Lymphocytes 21.7 % (18.0-47.0); %Monocytes 10.4 % (0.0-10.0); %Neutrophils 64.2 % (40.0-75.0); Hemoglobin 10.4 g/dL (12.0-15.5); Mean Corpuscular HGB CONC 33.5 g/dL (32.0-36.0); Mean Corpuscular Hemoglobin 26.4 pg (27.0-33.0); Mean Corpuscular Volume 78.7 fl (81.6-98.3); Mean Platelet Volume 10.3 fl (7.4-10.4); RBC Distribution Width 20.9 % (11.5-14.5); Red Blood Cell (RBC) Count 3.94 10x6/uL (3.90-5.03); White Blood Cell (WBC) Count 2.2 10x3/uL (3.5-10.5)
[2021-09-08 09:15] LABS: Platelet Count 67 10x3/uL (150-450)
[2021-09-08 09:22] LABS: Bilirubin 1+ (Negative); Blood, Urine 25 (Negative); Clarity Clear (Clear); Glucose, Urine (Dipstick) 100 mg/dL (Negative); Ketone, Urine Negative (Negative); Leukocyte Negative (Negative); Nitrite Negative (Negative); Protein, Urine (Dipstick) 100 mg/dl (Neg-Trace)
[2021-09-08 09:29] LABS: Amphetamine Not Detected (NotDetected); Barbiturates Screen Not Detected (NotDetected); Benzodiazepine Screen Not Detected (NotDetected); Cocaine Metabolite Screen Not Detected (NotDetected); Methadone Not Detected (NotDetected); Methamphetamine Not Detected (NotDetected); Opiate Screen Not Detected (NotDetected); Oxycodone Screen Not Detected (NotDetected); Phencyclidine (PCP) Not Detected (NotDetected); THC/Cannabinoid Screen Not Detected (NotDetected); Tricyclic Screen Not Detected (NotDetected)
[2021-09-08 09:38] LABS: ALT (SGPT) 16 U/L (8-55); AST (SGOT) 33 U/L (5-34); Acetaminophen Less than 10.0 mcg/mL (10.0-30.0); Alcohol Less than 10 mg/dL (Less than 10); Alkaline Phosphatase 220 U/L (40-110); Anion Gap 15 mmol/L (10-20); BUN (Urea Nitrogen) 18 mg/dL (9.8-20.1); Bilirubin, Total 2.9 mg/dL (0.2-1.2); Calc. Creatinine Clearance 0 mL/min (70-130); Calcium 9.9 mg/dL (7.8-10.44); Carbon Dioxide 24 mmol/L (23-31); Chloride 106 mmol/L (98-107); Glucose 215 mg/dL (83-110); Potassium 4.4 mmol/L (3.5-5.1); Salicylate Less than 8.0 mg/dL (15.0-30.0); Sodium 141 mmol/L (136-145)
[2021-09-08 09:55] LABS: RBC/HPF 0-3 HPF (0-3); WBC/HPF 0-3 HPF (0-3)
[2021-09-08 09:57] LABS: Bacteria/HPF Rare-Few HPF (None Seen)
[2021-09-08 10:27] LABS: Anisocytosis SLIGHT = 6-15 cells (100X) (0-5/hpf)
[2021-09-08 10:29] LABS: Hypochromia SLIGHT = 6-15 cells (100X) (0-5/hpf); Polychromasia SLIGHT = 2-3 cells (100X) (0-2/hpf)
[2021-09-08 10:30] LABS: Platelet Morphology Comment Appears Decreased
[2021-09-08 12:11] LABS: Lactic Acid 2.7 mmol/L (0.5-2.2)
[2021-09-08] MEDS ORDERED: Acetaminophen 325 MG TAB PO PRN (14:05)
[2021-09-08] MEDS ORDERED: Ondansetron ODT 4 MG TAB PO PRN (14:05)
[2021-09-08] MEDS ORDERED: Dextrose 5% in Water 1,000 ML IV PRN (14:08)
[2021-09-08] MEDS ORDERED: Dextrose 50% Abboject 50 ML SYRINGE SLOW IVP PRN (14:08)
[2021-09-08] MEDS ORDERED: HumaLOG 300 UNITS/3 ML VIAL SC PRN ×2 (14:08)
[2021-09-08] MEDS ORDERED: Lorazepam 2 MG/ML VIAL ONE ×3 (14:09→15:18)
[2021-09-08] MEDS ORDERED: Lorazepam 2 MG/ML VIAL SLOW IVP SCH (15:00)
[2021-09-08 18:24] VITALS: BMI 27.5
[2021-09-09] MEDS: Carvedilol 3.125 MG TAB PO SCH ×3 (01:42→21:17)
[2021-09-09] MEDS: Simvastatin 10 MG TAB PO SCH ×2 (01:46→21:17)
[2021-09-09] MEDS: Levothyroxine Sodium 75 MCG TAB PO SCH (06:53)
[2021-09-09] MEDS: Spironolactone 25 MG TAB PO SCH (10:31)
[2021-09-09] MEDS: Amlodipine 5 MG TAB PO SCH (10:31)
[2021-09-09] MEDS: Furosemide 40 MG TAB PO SCH (10:31)
[2021-09-09] MEDS: cefTRIAXone\\ROCEPHIN 2 GM in Sodium Chloride 0.9% 100 ML IVPB SCH (11:02)
[2021-09-09 14:25] LABS: Lactic Acid 2.4 mmol/L (0.5-2.2)
[2021-09-09 16:53] LABS: Hemoglobin 8.7 g/dL (12.0-15.5)
[2021-09-09] MEDS: Rifaximin 550 MG TAB PO SCH (21:18)
[2021-09-10] MEDS: Levothyroxine Sodium 75 MCG TAB PO SCH (04:40)
[2021-09-10 05:43] LABS: Anion Gap 19 mmol/L (10-20); BUN (Urea Nitrogen) 21 mg/dL (9.8-20.1); Calc. Creatinine Clearance 9 mL/min (70-130); Calcium 9.1 mg/dL (7.8-10.44); Carbon Dioxide 21 mmol/L (23-31); Chloride 106 mmol/L (98-107); Glucose 260 mg/dL (83-110); Potassium 4.1 mmol/L (3.5-5.1); Sodium 142 mmol/L (136-145)
[2021-09-10 05:49] LABS: Hemoglobin 8.6 g/dL (12.0-15.5); Mean Corpuscular HGB CONC 33.2 g/dL (32.0-36.0); Mean Corpuscular Hemoglobin 26.4 pg (27.0-33.0); Mean Corpuscular Volume 79.4 fl (81.6-98.3); Platelet Count 49 10x3/uL (150-450); RBC Distribution Width 21.2 % (11.5-14.5); Red Blood Cell (RBC) Count 3.26 10x6/uL (3.90-5.03); White Blood Cell (WBC) Count 10.3 10x3/uL (3.5-10.5)
[2021-09-10] MEDS ORDERED: Vancomycin HCl 1 GM in Sodium Chloride 0.9% 250 ML 250 ML IVPB SCH (09:00)
[2021-09-10] MEDS ORDERED: EPOETIN ALFA-EPBX (ESRD) 10,000 UNIT/ML VIAL IVP SCH (09:00)
[2021-09-10] MEDS: Amlodipine 5 MG TAB PO SCH (10:18)
[2021-09-10] MEDS: Spironolactone 25 MG TAB PO SCH (10:18)
[2021-09-10] MEDS: Furosemide 40 MG TAB PO SCH (10:19)
[2021-09-10] MEDS: Carvedilol 3.125 MG TAB PO SCH (10:19)
[2021-09-10] MEDS: cefTRIAXone\\ROCEPHIN 2 GM in Sodium Chloride 0.9% 100 ML IVPB SCH (10:36)
[2021-09-10] MEDS: Rifaximin 550 MG TAB PO SCH (10:37)
[2021-09-10] MEDS ORDERED: Vancomycin 1 GM in Premix Bag 1 BAG IVPB SCH (10:45)
[2021-09-10] MEDS ORDERED: Vancomycin HCl 750 MG in Sodium Chloride 0.9% 250 ML 250 ML IVPB SCH (10:45)
[2021-09-10] MEDS ORDERED: Vancomycin HCl 500 MG in Sodium Chloride 0.9% 100 ML IVPB SCH (10:45)
[2021-09-10] MEDS ORDERED: Vancomycin HCl 250 MG in Sodium Chloride 0.9% 100 ML IVPB SCH (10:45)
[2021-09-10] MEDS ORDERED: HOLD VANCOMYCIN FOR LEVEL >20 FS SCH (10:45)
[2021-09-10 11:30] LABS: Hemoglobin A1c 6.5 % (4.0-6.0)
[2021-09-10 17:17] VITALS: BP 140/65; TEMP 96.3
== END 2021-09-10 17:40 | disposition home or self-care (01) | DRG 441 ==
LOC: CSHERS 08:39 → CSHTELE 14:30 → INTOOBSV 14:30 → OBSVTOIN 09-09 17:11
PROVIDERS: ADMIT Family Medicine; ATTEND Internal Medicine
PROC: 5A1D70Z Performance of Urinary Filtration, Intermittent, Less than 6 Hours Per Day (ICD-10-PCS; principal; 2021-09-08)
DX: K72.00 Acute and subacute hepatic failure without coma (principal); N18.6 End stage renal disease; K65.2 Spontaneous bacterial peritonitis; D61.811 Other drug-induced pancytopenia; C22.0 Liver cell carcinoma; I12.0 Hypertensive chronic kidney disease with stage 5 chronic kidney disease or end stage renal disease; E03.9 Hypothyroidism, unspecified; D63.1 Anemia in chronic kidney disease; T66.XXXA Radiation sickness, unspecified, initial encounter; E11.22 Type 2 diabetes mellitus with diabetic chronic kidney disease; K70.30 Alcoholic cirrhosis of liver without ascites; Z99.2 Dependence on renal dialysis; Z91.14 Patient's other noncompliance with medication regimen; Z79.899 Other long term (current) drug therapy; Z79.4 Long term (current) use of insulin; Z79.890 Hormone replacement therapy; Z83.3 Family history of diabetes mellitus
CPT/HCPCS: 36415; 36416; 51701; 70450; 71045; 80048; 80053; 80306; 80307; 81003; 81015; 82140; 83036; 83605; 83690; 84484; 85014; 85018; 85025; 85027; 87040; 87070; 87086; 87205; 90935; 93005; 94760; 96374; 96375; 96376; G0257; G0378; J0696; J1815; J2060; J3370; J3490; J7050; Q5105

== ENCOUNTER 2021-10-02 11:57 | Observation (INO) | payer OTHER ==
[2021-10-02 13:07] LABS: #Eosinphils 0.1 10x3/uL (0.0-0.5); #Monocytes 0.3 10x3/uL (0.0-1.1); #Neutrophils 1.2 10x3/uL (1.5-8.4); %Lymphocytes 21.1 % (18.0-47.0); %Monocytes 14.6 % (0.0-10.0); %Neutrophils 58.8 % (40.0-75.0); Hemoglobin 9.4 g/dL (12.0-15.5); Mean Corpuscular HGB CONC 34.7 g/dL (32.0-36.0); Mean Corpuscular Volume 80.7 fl (81.6-98.3); Mean Platelet Volume 11.5 fl (7.4-10.4); Platelet Count 54 10x3/uL (150-450); RBC Distribution Width 19.1 % (11.5-14.5); Red Blood Cell (RBC) Count 3.36 10x6/uL (3.90-5.03)
[2021-10-02 13:11] LABS: INR-International Normal Ratio 1.2; PTT 31.9 sec (22.0-33.0); Prothrombin Time 12.8 sec (9.5-12.1)
[2021-10-02 13:20] LABS: ALT (SGPT) 29 U/L (8-55); AST (SGOT) 55 U/L (5-34); Acetaminophen Less than 10.0 mcg/mL (10.0-30.0); Albumin 2.2 g/dL (3.4-4.8); Alcohol Less than 10 mg/dL (Less than 10); Alkaline Phosphatase 290 U/L (40-110); Anion Gap 14 mmol/L (10-20); BUN (Urea Nitrogen) 8 mg/dL (9.8-20.1); Bilirubin, Total 2.7 mg/dL (0.2-1.2); CK (CPK) 139 U/L (29-168); Calc. Creatinine Clearance 0 mL/min (70-130); Calcium 8.3 mg/dL (7.8-10.44); Carbon Dioxide 25 mmol/L (23-31); Chloride 102 mmol/L (98-107); Globulin 5.4 g/dL (2.4-3.5); Glucose 110 mg/dL (83-110); Lipase 144 U/L (8-78); Protein, Total 7.6 g/dL (5.8-8.1); Salicylate Less than 8.0 mg/dL (15.0-30.0); Sodium 137 mmol/L (136-145)
[2021-10-02 13:43] LABS: CKMB 2.4 ng/mL (0-6.6)
[2021-10-02] MEDS ORDERED: Benzonatate 100 MG CAP PO PRN (14:51)
[2021-10-02] MEDS ORDERED: Ondansetron PF 4 MG/2 ML Vial IVP PRN (14:53)
[2021-10-02] MEDS ORDERED: Acetaminophen 325 MG TAB PO PRN (14:53)
[2021-10-02] MEDS ORDERED: Heparin 5,000 UNITS/ML VIAL SC SCH (15:00)
[2021-10-02 16:06] LABS: Lactic Acid 2.5 mmol/L (0.5-2.2)
[2021-10-02 17:04] VITALS: BMI 25.9
[2021-10-02] MEDS ORDERED: Aspirin 81 mg Enteric Coated Tablet PO SCH (18:30)
[2021-10-02] MEDS ORDERED: Simvastatin 10 MG TAB PO SCH (21:00)
[2021-10-02] MEDS ORDERED: Atorvastatin Calcium 10 MG TAB PO SCH (21:00)
[2021-10-02] MEDS: Rifaximin 550 MG TAB PO SCH (21:35)
[2021-10-02] MEDS: Carvedilol 3.125 MG TAB PO SCH (21:35)
[2021-10-03 05:25] LABS: ALT (SGPT) 19 U/L (8-55); AST (SGOT) 41 U/L (5-34); Albumin 1.6 g/dL (3.4-4.8); Alkaline Phosphatase 208 U/L (40-110); Anion Gap 15 mmol/L (10-20); BUN (Urea Nitrogen) 12 mg/dL (9.8-20.1); Bilirubin, Total 1.8 mg/dL (0.2-1.2); Calc. Creatinine Clearance 10 mL/min (70-130); Calcium 8.4 mg/dL (7.8-10.44); Carbon Dioxide 23 mmol/L (23-31); Chloride 105 mmol/L (98-107); Globulin 4.1 g/dL (2.4-3.5); Glucose 214 mg/dL (83-110); Potassium 4.1 mmol/L (3.5-5.1); Protein, Total 5.7 g/dL (5.8-8.1); Sodium 139 mmol/L (136-145)
[2021-10-03] MEDS ORDERED: Levothyroxine Sodium 75 MCG TAB PO SCH (06:00)
[2021-10-03] MEDS ORDERED: Aspirin 81 mg Enteric Coated Tablet PO SCH (09:00)
[2021-10-03] MEDS ORDERED: Furosemide 40 MG TAB PO SCH (09:00)
[2021-10-03] MEDS ORDERED: Amlodipine 5 MG TAB PO SCH (09:00)
[2021-10-03] MEDS ORDERED: Spironolactone 25 MG TAB PO SCH (09:00)
[2021-10-03] MEDS: Carvedilol 3.125 MG TAB PO SCH (10:35)
[2021-10-03] MEDS: Rifaximin 550 MG TAB PO SCH (10:36)
[2021-10-03] MEDS ORDERED: Dextrose 50% Abboject 50 ML SYRINGE SLOW IVP PRN (15:02)
[2021-10-03] MEDS ORDERED: HumaLOG 300 UNITS/3 ML VIAL SC PRN (15:02)
[2021-10-03] MEDS ORDERED: Dextrose 5% in Water 1,000 ML IV PRN (15:02)
[2021-10-03 15:06] VITALS: TEMP 96.2
[2021-10-03 15:54] VITALS: BP 152/68
[2021-10-03 21:10] LABS: SARS-CoV-2 PCR by NAA Not Detected (NotDetected)
== END 2021-10-03 17:29 | disposition home health service (06) ==
LOC: CSHERS 11:57 → CSHTELE 16:11 → INTOOBSV 16:11
PROVIDERS: ADMIT Family Medicine; ATTEND Family Medicine
DX: K72.90 Hepatic failure, unspecified without coma (principal); R42 Dizziness and giddiness; Z79.899 Other long term (current) drug therapy; E11.22 Type 2 diabetes mellitus with diabetic chronic kidney disease; I12.0 Hypertensive chronic kidney disease with stage 5 chronic kidney disease or end stage renal disease; N18.6 End stage renal disease; Z99.2 Dependence on renal dialysis; K70.30 Alcoholic cirrhosis of liver without ascites; I85.00 Esophageal varices without bleeding; E03.9 Hypothyroidism, unspecified; D63.1 Anemia in chronic kidney disease; C22.0 Liver cell carcinoma; Z20.822 Contact with and (suspected) exposure to COVID-19
CPT/HCPCS: 70450; 70551; 71045; 80053 ×2; 80307; 82140 ×2; 82550; 82553; 82962; 83605; 83690; 84484; 85025; 85610; 85730; 93005; 97139 ×4; 99285; G0378 ×3; U0003; U0005; 36415; 36416; J1815

== ENCOUNTER 2021-10-14 17:27 | Inpatient (IN) | payer MEDICARE, OTHER ==
[~2021-10-14 17:27] MED LIST: Iopamidol 300 61% 100 ML VIAL FS ONE
[2021-10-14 18:11] LABS: #Monocytes 0.2 10x3/uL (0.0-1.1); #Neutrophils 1.9 10x3/uL (1.5-8.4); %Basophils 0.8 % (0.0-2.0); %Eosinophils 0.4 % (0.0-6.0); %Lymphocytes 11.3 % (18.0-47.0); %Monocytes 8.9 % (0.0-10.0); %Neutrophils 77.4 % (40.0-75.0); Hemoglobin 8.1 g/dL (12.0-15.5); Mean Corpuscular Hemoglobin 27.9 pg (27.0-33.0); Mean Corpuscular Volume 82.1 fl (81.6-98.3); Platelet Count 38 10x3/uL (150-450); RBC Distribution Width 18.5 % (11.5-14.5); White Blood Cell (WBC) Count 2.5 10x3/uL (3.5-10.5)
[2021-10-14 18:12] LABS: Acetaminophen Less than 10.0 mcg/mL (10.0-30.0); Alcohol Less than 10 mg/dL (Less than 10); Salicylate Less than 8.0 mg/dL (15.0-30.0)
[2021-10-14 18:12] LABS: INR-International Normal Ratio 1.3
[2021-10-14 18:12] LABS: ALT (SGPT) 19 U/L (8-55); AST (SGOT) 41 U/L (5-34); Albumin 1.8 g/dL (3.4-4.8); Alkaline Phosphatase 250 U/L (40-110); Anion Gap 15 mmol/L (10-20); BUN (Urea Nitrogen) 20 mg/dL (9.8-20.1); Calc. Creatinine Clearance 0 mL/min (70-130); Calcium 8.8 mg/dL (7.8-10.44); Carbon Dioxide 24 mmol/L (23-31); Chloride 103 mmol/L (98-107); Globulin 4.3 g/dL (2.4-3.5); Glucose 275 mg/dL (83-110); Lipase 154 U/L (8-78); Magnesium 2.2 mg/dL (1.6-2.6); Potassium 3.9 mmol/L (3.5-5.1); Protein, Total 6.1 g/dL (5.8-8.1); Sodium 138 mmol/L (136-145)
[2021-10-14 18:13] LABS: Actual Bicarbonate (HCO3a) 25.9 mEq/L (22-28); CO2 Tension 29.5 mmHg (35.0-45.0); Calcium, Ionized (arterial) 1.14 mmol/L (1.12-1.30); Carboxyhemoglobin (COHb) 0.3 gm% (0.0-3.0); Hemoglobin (Hb) 10.1 g/dL (12.0-16.0); Potassium - ABG Lab 3.9 mmol/L (3.70-5.30); Puncture Site LBA; pH, Arterial 7.56 (7.35-7.45)
[2021-10-14 18:17] LABS: ALV-art Gradient 131.875 mmHg (0-20)
[2021-10-14 18:31] LABS: CKMB 1.6 ng/mL (0-6.6)
[2021-10-14 18:39] LABS: SARS-CoV-2 NAA Rapid Test Not Detected (NotDetected)
[2021-10-14 18:42] LABS: Anisocytosis SLIGHT = 6-15 cells (100X) (0-5/hpf); Hypochromia SLIGHT = 6-15 cells (100X) (0-5/hpf); Target Cells MARKED = >16 cells (100X) (0-1/hpf)
[2021-10-14 18:43] LABS: Polychromasia SLIGHT = 2-3 cells (100X) (0-2/hpf); Stomatocytes SLIGHT = 2-5 cells (100X) (0-1/hpf)
[2021-10-14 18:44] LABS: Platelet Morphology Comment Appears Decreased
[2021-10-14 18:47] LABS: Bilirubin Neg (Negative); Blood, Urine 25 (Negative); Clarity Clear (Clear); Glucose, Urine (Dipstick) 50 mg/dL (Negative); Ketone, Urine Negative (Negative); Leukocyte Negative (Negative); Nitrite Negative (Negative); Protein, Urine (Dipstick) 100 mg/dl (Neg-Trace); Specific Gravity, Urine 1.005 (1.002-1.036); Urobilinogen Normal mg/dL (Less than 2); pH, Urine 6.5 (5.0-9.0)
[2021-10-14 18:59] LABS: Bacteria/HPF 1+ HPF (None Seen); Mucous/LPF 2+ LPF (<2+); RBC/HPF 0-3 HPF (0-3); Squamous Epithelial 0-3 HPF (0-3); Transitional Epithelial 0-3 HPF (None Seen); WBC/HPF 0-3 HPF (0-3)
[2021-10-14] MEDS ORDERED: Piperacillin/Tazobactam 4.5 GM VIAL ONE (19:39)
[2021-10-14] MEDS ORDERED: Vancomycin 1.5 GRAM/300 ML BAG 1.5 GM in Premix Bag 1 BAG IVPB SCH (20:00)
[2021-10-14] MEDS ORDERED: Dextrose 5% in Water 1,000 ML IV PRN (21:11)
[2021-10-14] MEDS ORDERED: Dextrose 50% Abboject 50 ML SYRINGE SLOW IVP PRN (21:11)
[2021-10-14] MEDS ORDERED: Pantoprazole 40 MG VIAL IVP SCH (21:15)
[2021-10-14] MEDS ORDERED: Piperacillin/Tazobactam 3.375 GM in Sodium Chloride 0.9% 100 ML IVPB SCH (21:15)
[2021-10-14] MEDS ORDERED: Octreotide Acetate 50 MCG/ML AMP SLOW IVP SCH (21:15)
[2021-10-14] MEDS ORDERED: fentaNYL Citrate-0.9 % NaCl/PF 100 ML IVPB SCH (21:30)
[2021-10-14] MEDS ORDERED: Rifaximin 550 MG TAB PER TUBE SCH (21:45)
[2021-10-14 21:48] VITALS: BMI 25.4
[2021-10-14] MEDS: Pantoprazole 80 MG in Sodium Chloride 0.9% 100 ML IVP SCH (22:45)
[2021-10-14] MEDS: Octreotide Acetate 1,250 MCG in Sodium Chloride 0.9% 250 ML 250 ML IVPB SCH (22:45)
[2021-10-15 00:58] LABS: Lactic Acid 3.6 mmol/L (0.5-2.2)
[2021-10-15] MEDS: Piperacillin/Tazobactam 3.375 GM in Sodium Chloride 0.9% 100 ML IVPB SCH ×2 (01:06→13:30)
[2021-10-15] MEDS: HumaLOG 300 UNITS/3 ML VIAL SC PRN ×2 (02:22→09:03)
[2021-10-15 05:47] LABS: Actual Bicarbonate (HCO3a) 23.8 mEq/L (22-28); Base Excess (BEa) 1.4 mEq/L (-2.0 to +3.0); CO2 Tension 29.4 mmHg (35.0-45.0); Calcium, Ionized (arterial) 1.15 mmol/L (1.12-1.30); Carboxyhemoglobin (COHb) 0.6 gm% (0.0-3.0); Hemoglobin (Hb) 8.8 g/dL (12.0-16.0); O2 Tension (PaO2), arterial 83.6 mmHg (> 70.0); Potassium - ABG Lab 3.8 mmol/L (3.70-5.30); Puncture Site RBA; pH, Arterial 7.53 (7.35-7.45)
[2021-10-15 07:48] LABS: Hemoglobin 8.8 g/dL (12.0-15.5); Mean Corpuscular HGB CONC 34.6 g/dL (32.0-36.0); Mean Corpuscular Hemoglobin 27.8 pg (27.0-33.0); Mean Corpuscular Volume 80.4 fl (81.6-98.3); Platelet Count 86 10x3/uL (150-450); RBC Distribution Width 18.8 % (11.5-14.5); Red Blood Cell (RBC) Count 3.16 10x6/uL (3.90-5.03); White Blood Cell (WBC) Count 6.5 10x3/uL (3.5-10.5)
[2021-10-15 08:17] LABS: Anion Gap 22 mmol/L (10-20); BUN (Urea Nitrogen) 25 mg/dL (9.8-20.1); Calc. Creatinine Clearance 10 mL/min (70-130); Calcium 8.9 mg/dL (7.8-10.44); Carbon Dioxide 17 mmol/L (23-31); Chloride 106 mmol/L (98-107); Potassium 4.1 mmol/L (3.5-5.1); Sodium 141 mmol/L (136-145)
[2021-10-15 08:24] LABS: Glucose 220 mg/dL (83-110)
[2021-10-15 08:53] LABS: Band 1 % (5-11); Eosinophils 1 % (0-10); Lymphocytes 9 % (21-51); Monocytes 9 % (0-10); Myelocyte 1 % (0-0); Neutrophil 79 % (42-75)
[2021-10-15 08:54] LABS: Anisocytosis SLIGHT = 6-15 cells (100X) (0-5/hpf); MDiff Complete? YES
[2021-10-15 08:55] LABS: Hypochromia SLIGHT = 6-15 cells (100X) (0-5/hpf); Large Platelets SLIGHT; Platelet Morphology Comment Appears Decreased; Target Cells MARKED = >16 cells (100X) (0-1/hpf)
[2021-10-15 08:56] LABS: Vacuoles SLIGHT
[2021-10-15] MEDS: Rifaximin 550 MG TAB PER TUBE SCH ×2 (09:04→20:07)
[2021-10-15] MEDS ORDERED: Propofol 1,000 MG/100 ML VIAL IV ONE (09:48)
[2021-10-15] MEDS: Propofol 1,000 MG/100 ML VIAL IV PRN (09:56)
[2021-10-15] MEDS ORDERED: Propofol BOLUS 1,000 MG/100 ML VIAL IV PRN (10:00)
[2021-10-15] MEDS: Pantoprazole 80 MG in Sodium Chloride 0.9% 100 ML IVP SCH ×2 (10:52→21:13)
[2021-10-15 11:23] LABS: Magnesium 2.3 mg/dL (1.6-2.6)
[2021-10-15] MEDS ORDERED: Lactated Ringer's 500 ML IV SCH (11:45)
[2021-10-15] MEDS ORDERED: Lactated Ringer's 1,000 ML IV SCH ×2 (11:45)
[2021-10-15] MEDS ORDERED: Midazolam In 0.9 % NaCl/PF 100 ML IVPB SCH (12:45)
[2021-10-15 13:59] LABS: Actual Bicarbonate (HCO3a) 20.2 mEq/L (22-28); Base Excess (BEa) -3.5 mEq/L (-2.0 to +3.0); Calcium, Ionized (arterial) 1.19 mmol/L (1.12-1.30); Carboxyhemoglobin (COHb) 1.4 gm% (0.0-3.0); Hemoglobin (Hb) 6.7 g/dL (12.0-16.0); O2 Tension (PaO2), arterial 115.5 mmHg (> 70.0); Potassium - ABG Lab 3.5 mmol/L (3.70-5.30); Puncture Site RBA; pH, Arterial 7.45 (7.35-7.45)
[2021-10-15 14:13] LABS: Lactic Acid 4.7 mmol/L (0.5-2.2)
[2021-10-15] MEDS ORDERED: Octreotide Acetate 1,250 MCG in Sodium Chloride 0.9% 250 ML 250 ML IVPB SCH (14:30)
[2021-10-15] MEDS: Octreotide Acetate 1,250 MCG in Sodium Chloride 0.9% 250 ML 250 ML IVPB SCH (14:54)
[2021-10-15 14:57] LABS: Hemoglobin 6.5 g/dL (12.0-15.5)
[2021-10-15 20:32] LABS: Hemoglobin 7.9 g/dL (12.0-15.5)
[2021-10-15 20:40] LABS: Lactic Acid 3.5 mmol/L (0.5-2.2)
[2021-10-15] MEDS ORDERED: Norepinephrine 8 MG/0.9% NS 250 ML IVPB SCH (21:00)
[2021-10-16 00:12] LABS: Lactic Acid 2.9 mmol/L (0.5-2.2)
[2021-10-16 05:30] LABS: Anion Gap 20 mmol/L (10-20); BUN (Urea Nitrogen) 31 mg/dL (9.8-20.1); Calc. Creatinine Clearance 9 mL/min (70-130); Calcium 8.5 mg/dL (7.8-10.44); Carbon Dioxide 20 mmol/L (23-31); Chloride 107 mmol/L (98-107); Glucose 69 mg/dL (83-110); Potassium 3.5 mmol/L (3.5-5.1); Sodium 143 mmol/L (136-145)
[2021-10-16 05:42] LABS: #Monocytes 0.4 10x3/uL (0.0-1.1); #Neutrophils 2.7 10x3/uL (1.5-8.4); %Basophils 0.6 % (0.0-2.0); %Eosinophils 1.1 % (0.0-6.0); %Lymphocytes 10.4 % (18.0-47.0); %Monocytes 11.3 % (0.0-10.0); %Neutrophils 75.8 % (40.0-75.0); Hemoglobin 8.5 g/dL (12.0-15.5); Mean Corpuscular HGB CONC 35.7 g/dL (32.0-36.0); Mean Corpuscular Hemoglobin 29.1 pg (27.0-33.0); Mean Corpuscular Volume 81.5 fl (81.6-98.3); Mean Platelet Volume 10.7 fl (7.4-10.4); Platelet Count 64 10x3/uL (150-450); Red Blood Cell (RBC) Count 2.92 10x6/uL (3.90-5.03); White Blood Cell (WBC) Count 3.6 10x3/uL (3.5-10.5)
[2021-10-16] MEDS: Octreotide Acetate 1,250 MCG in Sodium Chloride 0.9% 250 ML 250 ML IVPB SCH ×2 (06:31→23:43)
[2021-10-16] MEDS: Pantoprazole 80 MG in Sodium Chloride 0.9% 100 ML IVP SCH ×3 (06:31→23:43)
[2021-10-16] MEDS: Propofol 1,000 MG/100 ML VIAL IV PRN (08:08)
[2021-10-16] MEDS: Rifaximin 550 MG TAB PER TUBE SCH ×2 (08:10→20:40)
[2021-10-16] MEDS ORDERED: Potassium Bicarbonate/Cit Ac 20 MEQ TAB PER TUBE SCH (09:00)
[2021-10-16] MEDS ORDERED: Albumin 25% 25 GM/100 ML BOT IVPB PRN (09:58)
[2021-10-16] MEDS: Piperacillin/Tazobactam 3.375 GM in Sodium Chloride 0.9% 100 ML IVPB SCH ×2 (11:54)
[2021-10-17] MEDS: Piperacillin/Tazobactam 3.375 GM in Sodium Chloride 0.9% 100 ML IVPB SCH ×3 (01:24→23:44)
[2021-10-17 03:57] LABS: Actual Bicarbonate (HCO3a) 22.1 mEq/L (22-28); Base Excess (BEa) -0.5 mEq/L (-2.0 to +3.0); CO2 Tension 28.5 mmHg (35.0-45.0); Calcium, Ionized (arterial) 1.09 mmol/L (1.12-1.30); Carboxyhemoglobin (COHb) 0.4 gm% (0.0-3.0); O2 Tension (PaO2), arterial 140.9 mmHg (> 70.0); Puncture Site RRA; pH, Arterial 7.51 (7.35-7.45)
[2021-10-17 04:03] LABS: ALV-art Gradient 108.675 mmHg (0-20)
[2021-10-17 04:40] LABS: Anion Gap 15 mmol/L (10-20); BUN (Urea Nitrogen) 21 mg/dL (9.8-20.1); Calc. Creatinine Clearance 12 mL/min (70-130); Carbon Dioxide 24 mmol/L (23-31); Chloride 102 mmol/L (98-107); Glucose 150 mg/dL (83-110); Potassium 3.9 mmol/L (3.5-5.1); Sodium 137 mmol/L (136-145)
[2021-10-17] MEDS: Propofol 1,000 MG/100 ML VIAL IV PRN (04:47)
[2021-10-17 04:49] LABS: #Monocytes 0.6 10x3/uL (0.0-1.1); #Neutrophils 3.5 10x3/uL (1.5-8.4); %Basophils 0.2 % (0.0-2.0); %Eosinophils 0.9 % (0.0-6.0); %Lymphocytes 10.3 % (18.0-47.0); %Monocytes 12.3 % (0.0-10.0); %Neutrophils 75.9 % (40.0-75.0); Hemoglobin 8.8 g/dL (12.0-15.5); Mean Corpuscular HGB CONC 35.2 g/dL (32.0-36.0); Mean Corpuscular Hemoglobin 28.9 pg (27.0-33.0); Mean Platelet Volume 10.5 fl (7.4-10.4); Platelet Count 55 10x3/uL (150-450); RBC Distribution Width 18.7 % (11.5-14.5); Red Blood Cell (RBC) Count 3.05 10x6/uL (3.90-5.03); White Blood Cell (WBC) Count 4.6 10x3/uL (3.5-10.5)
[2021-10-17 07:27] LABS: Iron 31 ug/dL (50-170); Iron Binding Capacity, Total 79 mcg/dL (265-497)
[2021-10-17] MEDS: Rifaximin 550 MG TAB PER TUBE SCH ×2 (08:37→19:59)
[2021-10-17] MEDS: Pantoprazole 80 MG in Sodium Chloride 0.9% 100 ML IVP SCH ×2 (13:08→23:42)
[2021-10-17] MEDS ORDERED: Glycopyrrolate 0.2 MG/ML 5 ML SYRINGE SLOW IVP SCH (14:45)
[2021-10-17] MEDS ORDERED: Haloperidol Lactate 5 MG/ML VIAL SLOW IVP PRN (16:25)
[2021-10-17] MEDS: Octreotide Acetate 1,250 MCG in Sodium Chloride 0.9% 250 ML 250 ML IVPB SCH (17:58)
[2021-10-18 02:42] LABS: Actual Bicarbonate (HCO3a) 21.4 mEq/L (22-28); Base Excess (BEa) 0.5 mEq/L (-2.0 to +3.0); CO2 Tension 22.6 mmHg (35.0-45.0); Calcium, Ionized (arterial) 1.02 mmol/L (1.12-1.30); Carboxyhemoglobin (COHb) 0.6 gm% (0.0-3.0); Hemoglobin (Hb) 8.8 g/dL (12.0-16.0); O2 Tension (PaO2), arterial 122.5 mmHg (> 70.0); Potassium - ABG Lab 3.8 mmol/L (3.70-5.30); Puncture Site RBA; pH, Arterial 7.59 (7.35-7.45)
[2021-10-18 04:38] LABS: #Monocytes 0.6 10x3/uL (0.0-1.1); #Neutrophils 4.1 10x3/uL (1.5-8.4); %Basophils 0.2 % (0.0-2.0); %Eosinophils 0.8 % (0.0-6.0); %Lymphocytes 10.4 % (18.0-47.0); %Monocytes 10.4 % (0.0-10.0); %Neutrophils 77.8 % (40.0-75.0); Hemoglobin 8.2 g/dL (12.0-15.5); Mean Corpuscular HGB CONC 35.3 g/dL (32.0-36.0); Platelet Count 48 10x3/uL (150-450); RBC Distribution Width 18.4 % (11.5-14.5); Red Blood Cell (RBC) Count 2.83 10x6/uL (3.90-5.03); White Blood Cell (WBC) Count 5.3 10x3/uL (3.5-10.5)
[2021-10-18 04:41] LABS: Anion Gap 19 mmol/L (10-20); BUN (Urea Nitrogen) 29 mg/dL (9.8-20.1); Calc. Creatinine Clearance 9 mL/min (70-130); Calcium 7.6 mg/dL (7.8-10.44); Carbon Dioxide 20 mmol/L (23-31); Chloride 104 mmol/L (98-107); Glucose 140 mg/dL (83-110); Potassium 3.9 mmol/L (3.5-5.1); Sodium 139 mmol/L (136-145)
[2021-10-18 04:43] LABS: ALT (SGPT) 30 U/L (8-55); AST (SGOT) 54 U/L (5-34); Albumin 1.6 g/dL (3.4-4.8); Alkaline Phosphatase 120 U/L (40-110); Bilirubin, Direct 2.1 mg/dL (0.1-0.3); Bilirubin, Total 2.8 mg/dL (0.2-1.2); Protein, Total 4.6 g/dL (5.8-8.1)
[2021-10-18] MEDS: Levothyroxine Sodium 75 MCG TAB PO SCH (05:26)
[2021-10-18] MEDS: Octreotide Acetate 1,250 MCG in Sodium Chloride 0.9% 250 ML 250 ML IVPB SCH (06:09)
[2021-10-18] MEDS: Rifaximin 550 MG TAB PER TUBE SCH ×2 (08:35→20:29)
[2021-10-18] MEDS ORDERED: EPOETIN ALFA-EPBX (ESRD) 4,000 UNIT/ML VIAL SC SCH (09:30)
[2021-10-18 09:42] LABS: Phosphorus 4.9 mg/dL (2.3-4.7)
[2021-10-18] MEDS ORDERED: Albumin 25% 25 GM/100 ML BOT IVPB PRN (09:51)
[2021-10-18] MEDS ORDERED: Iron, Sodium Ferric Gluconate 250 MG in Sodium Chloride 0.9% 250 ML 250 ML IVPB SCH (10:30)
[2021-10-18] MEDS ORDERED: Octreotide Acetate 1,250 MCG in Sodium Chloride 0.9% 250 ML 250 ML IVPB SCH (12:15)
[2021-10-18] MEDS: Piperacillin/Tazobactam 3.375 GM in Sodium Chloride 0.9% 100 ML IVPB SCH ×2 (13:47→23:48)
[2021-10-18] MEDS: Dexamethasone 4 mg/ml Vial SLOW IVP SCH ×2 (18:58→23:48)
[2021-10-18] MEDS: Pantoprazole 40 MG VIAL IVP SCH (20:29)
[2021-10-18] MEDS: Simvastatin 10 MG TAB PO SCH (20:30)
[2021-10-19] MEDS: HumaLOG 300 UNITS/3 ML VIAL SC PRN ×3 (00:01→12:57)
[2021-10-19 04:04] LABS: Actual Bicarbonate (HCO3a) 25.7 mEq/L (22-28); Base Excess (BEa) 1.4 mEq/L (-2.0 to +3.0); CO2 Tension 39.2 mmHg (35.0-45.0); Carboxyhemoglobin (COHb) 1.2 gm% (0.0-3.0); Hemoglobin (Hb) 8.2 g/dL (12.0-16.0); O2 Tension (PaO2), arterial 68.6 mmHg (> 70.0); Potassium - ABG Lab 4.1 mmol/L (3.70-5.30); Puncture Site RRA; pH, Arterial 7.44 (7.35-7.45)
[2021-10-19 04:35] LABS: Anion Gap 20 mmol/L (10-20); BUN (Urea Nitrogen) 18 mg/dL (9.8-20.1); Calc. Creatinine Clearance 12 mL/min (70-130); Calcium 8.3 mg/dL (7.8-10.44); Carbon Dioxide 23 mmol/L (23-31); Chloride 102 mmol/L (98-107); Glucose 166 mg/dL (83-110); Potassium 4.2 mmol/L (3.5-5.1); Sodium 141 mmol/L (136-145)
[2021-10-19 04:53] LABS: #Monocytes 0.1 10x3/uL (0.0-1.1); #Neutrophils 6.5 10x3/uL (1.5-8.4); %Basophils 0.1 % (0.0-2.0); %Lymphocytes 3.2 % (18.0-47.0); %Neutrophils 94.3 % (40.0-75.0); Hemoglobin 7.7 g/dL (12.0-15.5); Mean Corpuscular HGB CONC 34.7 g/dL (32.0-36.0); Mean Corpuscular Hemoglobin 28.9 pg (27.0-33.0); Mean Corpuscular Volume 83.5 fl (81.6-98.3); Mean Platelet Volume 12.6 fl (7.4-10.4); Platelet Count 46 10x3/uL (150-450); Red Blood Cell (RBC) Count 2.66 10x6/uL (3.90-5.03); White Blood Cell (WBC) Count 6.9 10x3/uL (3.5-10.5)
[2021-10-19] MEDS: Levothyroxine Sodium 75 MCG TAB PO SCH (05:08)
[2021-10-19] MEDS: Dexamethasone 4 mg/ml Vial SLOW IVP SCH ×2 (06:16→12:15)
[2021-10-19 07:37] LABS: Anisocytosis SLIGHT = 6-15 cells (100X) (0-5/hpf); Target Cells SLIGHT = 2-5 cells (100X) (0-1/hpf)
[2021-10-19 07:38] LABS: Platelet Morphology Comment Appears Decreased
[2021-10-19] MEDS: Pantoprazole 40 MG VIAL IVP SCH ×2 (08:08→20:56)
[2021-10-19] MEDS: Rifaximin 550 MG TAB PER TUBE SCH ×2 (08:09→20:57)
[2021-10-19 10:07] LABS: Phosphorus 4.9 mg/dL (2.3-4.7)
[2021-10-19] MEDS ORDERED: Albumin 25% 25 GM/100 ML BOT IVPB PRN (10:12)
[2021-10-19] MEDS: Piperacillin/Tazobactam 3.375 GM in Sodium Chloride 0.9% 100 ML IVPB SCH (12:15)
[2021-10-19] MEDS ORDERED: Pantoprazole 40 MG VIAL ONE ×3 (20:47)
[2021-10-19] MEDS: Simvastatin 10 MG TAB PO SCH (20:57)
[2021-10-19] MEDS ORDERED: Propranolol 40 MG TAB PO SCH (21:00)
[2021-10-20] MEDS: Piperacillin/Tazobactam 3.375 GM in Sodium Chloride 0.9% 100 ML IVPB SCH ×2 (01:02→12:06)
[2021-10-20] MEDS: Levothyroxine Sodium 75 MCG TAB PO SCH (05:17)
[2021-10-20 05:25] LABS: Hemoglobin 7.5 g/dL (12.0-15.5); Mean Corpuscular HGB CONC 34.7 g/dL (32.0-36.0); Mean Corpuscular Volume 83.4 fl (81.6-98.3); Mean Platelet Volume 11.6 fl (7.4-10.4); Platelet Count 49 10x3/uL (150-450); RBC Distribution Width 17.2 % (11.5-14.5); Red Blood Cell (RBC) Count 2.59 10x6/uL (3.90-5.03); White Blood Cell (WBC) Count 7.7 10x3/uL (3.5-10.5)
[2021-10-20 05:31] LABS: Anion Gap 22 mmol/L (10-20); BUN (Urea Nitrogen) 36 mg/dL (9.8-20.1); Calc. Creatinine Clearance 9 mL/min (70-130); Calcium 8.4 mg/dL (7.8-10.44); Carbon Dioxide 20 mmol/L (23-31); Chloride 102 mmol/L (98-107); Glucose 207 mg/dL (83-110); Potassium 4.4 mmol/L (3.5-5.1); Sodium 140 mmol/L (136-145)
[2021-10-20 05:49] LABS: MDiff Complete? YES
[2021-10-20 06:06] LABS: Band 3 % (5-11); Lymphocytes 4 % (21-51); Monocytes 4 % (0-10); Neutrophil 88 % (42-75); Reactive Lymphocytes 1 % (0-10)
[2021-10-20 06:07] LABS: Platelet Morphology Comment Appears Decreased
[2021-10-20 06:11] LABS: Anisocytosis SLIGHT = 6-15 cells (100X) (0-5/hpf); Poikilocytosis SLIGHT = 6-15 cells (100X) (0-5/hpf)
[2021-10-20 06:12] LABS: Hypochromia MODERATE=16-30 cells (100X) (0-5/hpf); Schistocytes SLIGHT = 2-5 cells (100X) (0-1/hpf); Target Cells SLIGHT = 2-5 cells (100X) (0-1/hpf)
[2021-10-20] MEDS: Rifaximin 550 MG TAB PER TUBE SCH ×2 (08:34→21:34)
[2021-10-20] MEDS: Pantoprazole 40 MG VIAL IVP SCH ×2 (08:35→21:34)
[2021-10-20] MEDS: EPOETIN ALFA-EPBX (ESRD) 4,000 UNIT/ML VIAL SC SCH (08:42)
[2021-10-20] MEDS ORDERED: Iron, Sodium Ferric Gluconate 250 MG in Sodium Chloride 0.9% 250 ML 250 ML IVPB SCH (08:45)
[2021-10-20] MEDS: HumaLOG 300 UNITS/3 ML VIAL SC PRN ×2 (09:58→16:02)
[2021-10-20] MEDS: Simvastatin 10 MG TAB PO SCH (21:34)
[2021-10-21 05:15] LABS: Anion Gap 18 mmol/L (10-20); BUN (Urea Nitrogen) 22 mg/dL (9.8-20.1); Calc. Creatinine Clearance 12 mL/min (70-130); Calcium 8.4 mg/dL (7.8-10.44); Carbon Dioxide 25 mmol/L (23-31); Chloride 98 mmol/L (98-107); Glucose 264 mg/dL (83-110); Potassium 3.2 mmol/L (3.5-5.1); Sodium 138 mmol/L (136-145)
[2021-10-21 05:22] LABS: #Eosinphils 0.1 10x3/uL (0.0-0.5); #Monocytes 0.8 10x3/uL (0.0-1.1); #Neutrophils 7.1 10x3/uL (1.5-8.4); %Basophils 0.1 % (0.0-2.0); %Eosinophils 0.8 % (0.0-6.0); %Lymphocytes 3.4 % (18.0-47.0); Hemoglobin 7.7 g/dL (12.0-15.5); Mean Corpuscular HGB CONC 34.2 g/dL (32.0-36.0); Mean Corpuscular Hemoglobin 28.7 pg (27.0-33.0); Mean Platelet Volume 11.2 fl (7.4-10.4); Platelet Count 66 10x3/uL (150-450); RBC Distribution Width 17.5 % (11.5-14.5); Red Blood Cell (RBC) Count 2.68 10x6/uL (3.90-5.03); White Blood Cell (WBC) Count 8.4 10x3/uL (3.5-10.5)
[2021-10-21] MEDS ORDERED: Potassium Chloride 20 MEQ TAB PO SCH (06:30)
[2021-10-21] MEDS: Levothyroxine Sodium 75 MCG TAB PO SCH (07:17)
[2021-10-21] MEDS ORDERED: Spironolactone 25 MG TAB PO SCH (09:15)
[2021-10-21] MEDS ORDERED: Amlodipine 5 MG TAB PO SCH (09:15)
[2021-10-21] MEDS: Rifaximin 550 MG TAB PER TUBE SCH ×2 (09:27→22:35)
[2021-10-21] MEDS: Pantoprazole 40 MG VIAL IVP SCH ×2 (09:27→22:36)
[2021-10-21] MEDS: Ampicillin 2 GM in Sodium Chloride 0.9% 100 ML IVPB SCH (17:18)
[2021-10-21] MEDS: Carvedilol 3.125 MG TAB PO SCH (17:21)
[2021-10-21] MEDS: Simvastatin 10 MG TAB PO SCH (22:35)
[2021-10-22] MEDS: Levothyroxine Sodium 75 MCG TAB PO SCH (04:18)
[2021-10-22] MEDS: Ampicillin 2 GM in Sodium Chloride 0.9% 100 ML IVPB SCH ×2 (04:18→18:30)
[2021-10-22 05:13] LABS: Anion Gap 19 mmol/L (10-20); BUN (Urea Nitrogen) 28 mg/dL (9.8-20.1); Calc. Creatinine Clearance 9 mL/min (70-130); Calcium 8.6 mg/dL (7.8-10.44); Carbon Dioxide 22 mmol/L (23-31); Chloride 100 mmol/L (98-107); Glucose 239 mg/dL (83-110); Potassium 3.4 mmol/L (3.5-5.1); Sodium 138 mmol/L (136-145)
[2021-10-22 05:25] LABS: #Eosinphils 0.1 10x3/uL (0.0-0.5); #Monocytes 1.1 10x3/uL (0.0-1.1); #Neutrophils 6.4 10x3/uL (1.5-8.4); %Basophils 0.2 % (0.0-2.0); %Lymphocytes 4.6 % (18.0-47.0); %Monocytes 13.2 % (0.0-10.0); %Neutrophils 79.6 % (40.0-75.0); Hemoglobin 8.9 g/dL (12.0-15.5); Mean Corpuscular HGB CONC 34.9 g/dL (32.0-36.0); Mean Corpuscular Hemoglobin 28.7 pg (27.0-33.0); Mean Corpuscular Volume 82.3 fl (81.6-98.3); Mean Platelet Volume 10.4 fl (7.4-10.4); Platelet Count 67 10x3/uL (150-450); RBC Distribution Width 17.5 % (11.5-14.5)
[2021-10-22] MEDS ORDERED: Spironolactone 25 MG TAB PO SCH (08:00)
[2021-10-22] MEDS ORDERED: Amlodipine 5 MG TAB PO SCH (09:00)
[2021-10-22] MEDS ORDERED: Pantoprazole 40 MG VIAL ONE ×2 (09:33→20:48)
[2021-10-22] MEDS: Spironolactone 25 MG TAB PO SCH (10:00)
[2021-10-22] MEDS: Amlodipine 5 MG TAB PO SCH (10:00)
[2021-10-22] MEDS: Rifaximin 550 MG TAB PER TUBE SCH ×2 (10:01→21:23)
[2021-10-22] MEDS: Carvedilol 3.125 MG TAB PO SCH ×2 (10:01→18:30)
[2021-10-22] MEDS: Pantoprazole 40 MG VIAL IVP SCH ×2 (10:22→21:24)
[2021-10-22] MEDS ORDERED: hydrALAZINE 10 MG TAB PO SCH (11:45)
[2021-10-22] MEDS: HumaLOG 300 UNITS/3 ML VIAL SC PRN ×2 (11:45→18:31)
[2021-10-22] MEDS ORDERED: hydrALAZINE 10 MG TAB PO PRN (11:46)
[2021-10-22] MEDS ORDERED: Sodium Chloride 0.9% 100 ML ONE (18:27)
[2021-10-22 18:50] LABS: SARS-CoV-2 PCR by NAA Not Detected (NotDetected)
[2021-10-22] MEDS: Simvastatin 10 MG TAB PO SCH (21:23)
[2021-10-23] MEDS: Levothyroxine Sodium 75 MCG TAB PO SCH (04:23)
[2021-10-23] MEDS: Ampicillin 2 GM in Sodium Chloride 0.9% 100 ML IVPB SCH ×2 (04:23→16:28)
[2021-10-23 05:44] LABS: #Eosinphils 0.1 10x3/uL (0.0-0.5); #Monocytes 0.7 10x3/uL (0.0-1.1); %Basophils 0.2 % (0.0-2.0); %Eosinophils 1.7 % (0.0-6.0); %Lymphocytes 7.3 % (18.0-47.0); %Monocytes 10.6 % (0.0-10.0); %Neutrophils 78.8 % (40.0-75.0); Anion Gap 23 mmol/L (10-20); BUN (Urea Nitrogen) 33 mg/dL (9.8-20.1); Calc. Creatinine Clearance 7 mL/min (70-130); Calcium 8.4 mg/dL (7.8-10.44); Carbon Dioxide 20 mmol/L (23-31); Chloride 101 mmol/L (98-107); Glucose 169 mg/dL (83-110); Hemoglobin 9.1 g/dL (12.0-15.5); Mean Corpuscular HGB CONC 36.7 g/dL (32.0-36.0); Mean Corpuscular Hemoglobin 29.9 pg (27.0-33.0); Mean Corpuscular Volume 81.6 fl (81.6-98.3); Mean Platelet Volume 11.6 fl (7.4-10.4); Potassium 3.6 mmol/L (3.5-5.1); RBC Distribution Width 17.3 % (11.5-14.5); Red Blood Cell (RBC) Count 3.04 10x6/uL (3.90-5.03); Sodium 140 mmol/L (136-145); White Blood Cell (WBC) Count 6.4 10x3/uL (3.5-10.5)
[2021-10-23 05:45] LABS: Platelet Count 60 10x3/uL (150-450)
[2021-10-23] MEDS: Pantoprazole 40 MG VIAL IVP SCH ×2 (09:00→21:18)
[2021-10-23] MEDS: Carvedilol 3.125 MG TAB PO SCH ×2 (09:00→16:21)
[2021-10-23] MEDS: Rifaximin 550 MG TAB PER TUBE SCH ×2 (09:00→21:17)
[2021-10-23] MEDS: Spironolactone 25 MG TAB PO SCH (09:13)
[2021-10-23] MEDS: Amlodipine 5 MG TAB PO SCH (13:13)
[2021-10-23] MEDS: EPOETIN ALFA-EPBX (ESRD) 4,000 UNIT/ML VIAL SC SCH (13:26)
[2021-10-23] MEDS: Simvastatin 10 MG TAB PO SCH (21:17)
[2021-10-24] MEDS: Ampicillin 2 GM in Sodium Chloride 0.9% 100 ML IVPB SCH ×2 (04:33→16:25)
[2021-10-24] MEDS: Levothyroxine Sodium 75 MCG TAB PO SCH (05:03)
[2021-10-24 05:48] LABS: #Eosinphils 0.1 10x3/uL (0.0-0.5); #Monocytes 0.5 10x3/uL (0.0-1.1); #Neutrophils 4.3 10x3/uL (1.5-8.4); %Basophils 0.2 % (0.0-2.0); %Eosinophils 1.5 % (0.0-6.0); %Lymphocytes 6.7 % (18.0-47.0); %Monocytes 10.1 % (0.0-10.0); %Neutrophils 81.1 % (40.0-75.0); Hemoglobin 9.1 g/dL (12.0-15.5); Mean Corpuscular HGB CONC 35.7 g/dL (32.0-36.0); Mean Corpuscular Hemoglobin 29.1 pg (27.0-33.0); Mean Corpuscular Volume 81.5 fl (81.6-98.3); RBC Distribution Width 18.1 % (11.5-14.5); Red Blood Cell (RBC) Count 3.13 10x6/uL (3.90-5.03); White Blood Cell (WBC) Count 5.4 10x3/uL (3.5-10.5)
[2021-10-24 05:49] LABS: Platelet Count 61 10x3/uL (150-450)
[2021-10-24 06:02] LABS: Anion Gap 18 mmol/L (10-20); BUN (Urea Nitrogen) 19 mg/dL (9.8-20.1); Calc. Creatinine Clearance 10 mL/min (70-130); Calcium 8.3 mg/dL (7.8-10.44); Carbon Dioxide 24 mmol/L (23-31); Chloride 101 mmol/L (98-107); Glucose 244 mg/dL (83-110); Potassium 3.6 mmol/L (3.5-5.1); Sodium 139 mmol/L (136-145)
[2021-10-24] MEDS: HumaLOG 300 UNITS/3 ML VIAL SC PRN ×3 (06:46→18:30)
[2021-10-24] MEDS: Amlodipine 5 MG TAB PO SCH (08:26)
[2021-10-24] MEDS: Spironolactone 25 MG TAB PO SCH (08:26)
[2021-10-24] MEDS: Carvedilol 3.125 MG TAB PO SCH ×2 (08:27→16:25)
[2021-10-24] MEDS: Rifaximin 550 MG TAB PER TUBE SCH (08:27)
[2021-10-24] MEDS: Pantoprazole 40 MG VIAL IVP SCH (08:27)
[2021-10-24 17:48] VITALS: BP 148/65; TEMP 97.1
[2021-10-24] MEDS ORDERED: Rifaximin 550 MG TAB PO SCH (21:00)
[2021-10-24] MEDS: Simvastatin 10 MG TAB PO SCH (22:14)
== END 2021-10-24 21:00 | DRG 870 ==
LOC: CSHERS 17:27 → CSHIMCU 20:43 → CSHTELE 10-20 17:12
PROVIDERS: ADMIT Family Medicine; ATTEND Internal Medicine
PROC: 5A1955Z Respiratory Ventilation, Greater than 96 Consecutive Hours (ICD-10-PCS; principal; 2021-10-14)
PROC: 0DJ08ZZ Inspection of Upper Intestinal Tract, Via Natural or Artificial Opening Endoscopic (ICD-10-PCS; 2021-10-15)
PROC: 30233R1 Transfusion of Nonautologous Platelets into Peripheral Vein, Percutaneous Approach (ICD-10-PCS; 2021-10-15)
PROC: 30233N1 Transfusion of Nonautologous Red Blood Cells into Peripheral Vein, Percutaneous Approach (ICD-10-PCS; 2021-10-15)
PROC: 5A1D70Z Performance of Urinary Filtration, Intermittent, Less than 6 Hours Per Day (ICD-10-PCS; 2021-10-16)
PROC: 5A1D70Z Performance of Urinary Filtration, Intermittent, Less than 6 Hours Per Day (ICD-10-PCS; 2021-10-18)
PROC: 5A1D70Z Performance of Urinary Filtration, Intermittent, Less than 6 Hours Per Day (ICD-10-PCS; 2021-10-20)
PROC: 5A1D70Z Performance of Urinary Filtration, Intermittent, Less than 6 Hours Per Day (ICD-10-PCS; 2021-10-23)
DX: A41.89 Other specified sepsis (principal); N18.6 End stage renal disease; G93.41 Metabolic encephalopathy; J96.01 Acute respiratory failure with hypoxia; K72.00 Acute and subacute hepatic failure without coma; R65.21 Severe sepsis with septic shock; I81 Portal vein thrombosis; K76.6 Portal hypertension; I24.8 Other forms of acute ischemic heart disease; E87.3 Alkalosis; E87.2 Acidosis; C22.8 Malignant neoplasm of liver, primary, unspecified as to type; D62 Acute posthemorrhagic anemia; I12.0 Hypertensive chronic kidney disease with stage 5 chronic kidney disease or end stage renal disease; E11.22 Type 2 diabetes mellitus with diabetic chronic kidney disease; E78.5 Hyperlipidemia, unspecified; E03.9 Hypothyroidism, unspecified; D69.6 Thrombocytopenia, unspecified; K70.31 Alcoholic cirrhosis of liver with ascites; D63.1 Anemia in chronic kidney disease; Z20.822 Contact with and (suspected) exposure to COVID-19; E11.65 Type 2 diabetes mellitus with hyperglycemia; E87.6 Hypokalemia; Z99.2 Dependence on renal dialysis; Z79.899 Other long term (current) drug therapy; Z90.710 Acquired absence of both cervix and uterus; Z98.890 Other specified postprocedural states
CPT/HCPCS: 31500; 36415; 36416; 36430; 36600; 51702; 70450; 70486; 71045; 71260; 72125; 74177; 76377; 80048; 80053; 80076; 80307; 81003; 81015; 82140; 82274; 82553; 82728; 82805; 83540; 83550; 83605; 83690; 83735; 83880; 84100; 84443; 84484; 85014; 85025; 85610; 85730; 86850; 86900; 86901; 87040; 87070; 87077; 87081; 87086; 87149; 87186; 87205; 90935; 93005; 93010; 94002; 94003; 94640; 94667; 94668; 94669; 94760; 96365; 96366; 96368; 96375; 99292; C9113; G0257; J0290; J1100; J1815; J2354; J2543; J2704; J2916; J3370; J3490; J7050; J7070; J7120; J7620; P9016; P9035; P9047; Q5105; Q9967; U0002; U0003; U0005

== ENCOUNTER 2021-12-04 11:44 | Observation (INO) | payer MEDICARE, OTHER ==
[2021-12-04 13:20] LABS: #Monocytes 0.6 10x3/uL (0.0-1.1); #Neutrophils 4.1 10x3/uL (1.5-8.4); %Basophils 0.4 % (0.0-2.0); %Eosinophils 0.6 % (0.0-6.0); %Lymphocytes 11.1 % (18.0-47.0); %Monocytes 10.9 % (0.0-10.0); %Neutrophils 76.3 % (40.0-75.0); Mean Corpuscular HGB CONC 35.6 g/dL (32.0-36.0); Mean Corpuscular Hemoglobin 30.9 pg (27.0-33.0); Mean Corpuscular Volume 86.9 fl (81.6-98.3); Mean Platelet Volume 12.3 fl (7.4-10.4); Platelet Count 60 10x3/uL (150-450); RBC Distribution Width 18.5 % (11.5-14.5); Red Blood Cell (RBC) Count 2.59 10x6/uL (3.90-5.03); White Blood Cell (WBC) Count 5.4 10x3/uL (3.5-10.5)
[2021-12-04 13:33] LABS: Acetaminophen Less than 10.0 mcg/mL (10.0-30.0); Alcohol Less than 10 mg/dL (Less than 10); Salicylate Less than 8.0 mg/dL (15.0-30.0)
[2021-12-04 13:42] LABS: ALT (SGPT) 20 U/L (8-55); AST (SGOT) 36 U/L (5-34); Albumin 1.5 g/dL (3.4-4.8); Alkaline Phosphatase 305 U/L (40-110); Anion Gap 16 mmol/L (10-20); BUN (Urea Nitrogen) 14 mg/dL (9.8-20.1); Bilirubin, Total 5.9 mg/dL (0.2-1.2); Calc. Creatinine Clearance 0 mL/min (70-130); Calcium 8.3 mg/dL (7.8-10.44); Carbon Dioxide 24 mmol/L (23-31); Chloride 103 mmol/L (98-107); Globulin 4.6 g/dL (2.4-3.5); Glucose 118 mg/dL (83-110); Potassium 3.9 mmol/L (3.5-5.1); Protein, Total 6.1 g/dL (5.8-8.1); Sodium 139 mmol/L (136-145)
[2021-12-04] MEDS ORDERED: Cefepime 1 GM VIAL ONE (14:05)
[2021-12-04] MEDS ORDERED: Ondansetron ODT 4 MG TAB PO PRN (15:09)
[2021-12-04] MEDS ORDERED: Acetaminophen 325 MG TAB PO PRN (15:09)
[2021-12-04 15:54] LABS: Lactic Acid 2.8 mmol/L (0.5-2.2)
[2021-12-04 16:02] VITALS: BMI 25.4
[2021-12-04] MEDS ORDERED: HumaLOG 300 UNITS/3 ML VIAL SC PRN (16:07)
[2021-12-04] MEDS ORDERED: Dextrose 50% Abboject 50 ML SYRINGE SLOW IVP PRN (16:07)
[2021-12-04] MEDS ORDERED: Dextrose 5% in Water 1,000 ML IV PRN (16:07)
[2021-12-04 18:03] LABS: SARS-CoV-2 NAA Rapid Test Not Detected (NotDetected)
[2021-12-05] MEDS ORDERED: Calcium Carbonate 500 MG ChewTAB PO PRN ×2 (03:05)
[2021-12-05 04:59] LABS: #Monocytes 0.5 10x3/uL (0.0-1.1); #Neutrophils 4.1 10x3/uL (1.5-8.4); %Basophils 0.6 % (0.0-2.0); %Eosinophils 0.8 % (0.0-6.0); %Lymphocytes 9.8 % (18.0-47.0); %Neutrophils 79.4 % (40.0-75.0); Hemoglobin 7.2 g/dL (12.0-15.5); Mean Corpuscular Hemoglobin 31.7 pg (27.0-33.0); Mean Corpuscular Volume 88.1 fl (81.6-98.3); Mean Platelet Volume 12.8 fl (7.4-10.4); Platelet Count 54 10x3/uL (150-450); RBC Distribution Width 18.8 % (11.5-14.5); Red Blood Cell (RBC) Count 2.27 10x6/uL (3.90-5.03); White Blood Cell (WBC) Count 5.1 10x3/uL (3.5-10.5)
[2021-12-05 05:29] LABS: Anion Gap 16 mmol/L (10-20); BUN (Urea Nitrogen) 21 mg/dL (9.8-20.1); Calc. Creatinine Clearance 13 mL/min (70-130); Calcium 8.4 mg/dL (7.8-10.44); Carbon Dioxide 21 mmol/L (23-31); Chloride 107 mmol/L (98-107); Glucose 149 mg/dL (83-110); Potassium 4.7 mmol/L (3.5-5.1); Sodium 139 mmol/L (136-145)
[2021-12-05] MEDS ORDERED: Famotidine 20 MG TAB PO SCH (09:00)
[2021-12-05 12:54] VITALS: BP 139/65; TEMP 97.3
== END 2021-12-05 13:50 | disposition home or self-care (01) ==
LOC: CSHERS 11:44 → CSHICU 15:40 → INTOOBSV 15:40
PROVIDERS: ADMIT Internal Medicine; ATTEND Internal Medicine
DX: R53.1 Weakness (principal); R41.0 Disorientation, unspecified; I12.0 Hypertensive chronic kidney disease with stage 5 chronic kidney disease or end stage renal disease; E11.22 Type 2 diabetes mellitus with diabetic chronic kidney disease; N18.6 End stage renal disease; D63.1 Anemia in chronic kidney disease; K74.60 Unspecified cirrhosis of liver; Z85.05 Personal history of malignant neoplasm of liver; Z79.4 Long term (current) use of insulin; Z79.890 Hormone replacement therapy; Z79.899 Other long term (current) drug therapy; Z99.2 Dependence on renal dialysis; Z20.822 Contact with and (suspected) exposure to COVID-19
CPT/HCPCS: 70450; 71045; 80048; 80053; 80307; 82140; 82962 ×2; 83605; 84484; 85025 ×2; 87040; 93005; 94760 ×2; 97116; U0002; 36415; 36416; 96374; G0378; J0692; J1815; J3370

== ENCOUNTER 2021-12-13 13:25 | Emergency (ER) | payer MEDICARE ==
[2021-12-13 14:49] LABS: #Monocytes 0.5 10x3/uL (0.0-1.1); #Neutrophils 2.3 10x3/uL (1.5-8.4); %Basophils 0.6 % (0.0-2.0); %Eosinophils 0.9 % (0.0-6.0); %Lymphocytes 13.5 % (18.0-47.0); %Monocytes 14.5 % (0.0-10.0); %Neutrophils 69.6 % (40.0-75.0); Hemoglobin 7.7 g/dL (12.0-15.5); Mean Corpuscular Hemoglobin 30.9 pg (27.0-33.0); Mean Corpuscular Volume 83.5 fl (81.6-98.3); Platelet Count 56 10x3/uL (150-450); RBC Distribution Width 16.5 % (11.5-14.5); Red Blood Cell (RBC) Count 2.49 10x6/uL (3.90-5.03); White Blood Cell (WBC) Count 3.3 10x3/uL (3.5-10.5)
[2021-12-13 15:01] LABS: ALT (SGPT) 27 U/L (8-55); AST (SGOT) 52 U/L (5-34); Albumin 1.6 g/dL (3.4-4.8); Alkaline Phosphatase 294 U/L (40-110); Anion Gap 15 mmol/L (10-20); BUN (Urea Nitrogen) 9 mg/dL (9.8-20.1); Bilirubin, Total 7.1 mg/dL (0.2-1.2); Calc. Creatinine Clearance 0 mL/min (70-130); Calcium 8.4 mg/dL (7.8-10.44); Carbon Dioxide 24 mmol/L (23-31); Chloride 102 mmol/L (98-107); Estimated GFR 18; Globulin 5.4 g/dL (2.4-3.5); Magnesium 1.8 mg/dL (1.6-2.6); Potassium 3.9 mmol/L (3.5-5.1); Sodium 137 mmol/L (136-145)
[2021-12-13 15:13] LABS: Glucose 58 mg/dL (83-110)
== END 2021-12-13 16:35 | disposition home or self-care (01) ==
LOC: CSHERS 13:25
DX: E11.649 Type 2 diabetes mellitus with hypoglycemia without coma (principal); I12.0 Hypertensive chronic kidney disease with stage 5 chronic kidney disease or end stage renal disease; N18.6 End stage renal disease; Z99.2 Dependence on renal dialysis; Z79.899 Other long term (current) drug therapy
CPT/HCPCS: 36415; 36416; 80053; 83735; 85025; 99283

== ENCOUNTER 2021-12-30 17:38 | Inpatient (IN) | payer MEDICARE ==
[~2021-12-30 17:38] MED LIST changes: +Rocuronium Bromide 10 MG/ML (10ML VIAL) ONE
[2021-12-30 18:35] LABS: #Monocytes 0.9 10x3/uL (0.0-1.1); #Neutrophils 8.1 10x3/uL (1.5-8.4); %Basophils 0.4 % (0.0-2.0); %Eosinophils 0.2 % (0.0-6.0); %Monocytes 9.5 % (0.0-10.0); %Neutrophils 84.1 % (40.0-75.0); Hemoglobin 10.4 g/dL (12.0-15.5); Mean Corpuscular HGB CONC 35.4 g/dL (32.0-36.0); Mean Corpuscular Hemoglobin 30.8 pg (27.0-33.0); Mean Platelet Volume 12.4 fl (7.4-10.4); Platelet Count 67 10x3/uL (150-450); RBC Distribution Width 17.1 % (11.5-14.5); Red Blood Cell (RBC) Count 3.38 10x6/uL (3.90-5.03); White Blood Cell (WBC) Count 9.7 10x3/uL (3.5-10.5)
[2021-12-30 18:53] LABS: ALT (SGPT) 30 U/L (8-55); AST (SGOT) 35 U/L (5-34); Albumin 1.1 g/dL (3.4-4.8); Alkaline Phosphatase 176 U/L (40-110); Anion Gap 18 mmol/L (10-20); BUN (Urea Nitrogen) 30 mg/dL (9.8-20.1); Bilirubin, Total 9.1 mg/dL (0.2-1.2); Calc. Creatinine Clearance 0 mL/min (70-130); Calcium 9.4 mg/dL (7.8-10.44); Carbon Dioxide 18 mmol/L (23-31); Chloride 102 mmol/L (98-107); Estimated GFR 5; Globulin 4.5 g/dL (2.4-3.5); Glucose 89 mg/dL (83-110); Potassium 3.9 mmol/L (3.5-5.1); Protein, Total 5.6 g/dL (5.8-8.1); Sodium 134 mmol/L (136-145)
[2021-12-30 19:12] LABS: CKMB 1.6 ng/mL (0-6.6)
[2021-12-30] MEDS ORDERED: Acetaminophen 325 MG TAB PO PRN (20:02)
[2021-12-30] MEDS ORDERED: Guaifenesin DM 100-10/5 ML UDCUP PO PRN (20:02)
[2021-12-30] MEDS ORDERED: Calcium Carbonate 500 MG ChewTAB PO PRN (20:02)
[2021-12-30] MEDS ORDERED: HumaLOG 300 UNITS/3 ML VIAL SC PRN (20:02)
[2021-12-30] MEDS ORDERED: Senokot S 8.6-50 MG TAB PO PRN (20:02)
[2021-12-30] MEDS ORDERED: Ondansetron PF 4 MG/2 ML Vial IVP PRN (20:02)
[2021-12-30] MEDS ORDERED: Dextrose 5% in Water 1,000 ML IV PRN (20:02)
[2021-12-30] MEDS ORDERED: Sodium Chloride 0.9% 1,000 ML IV SCH (20:30)
[2021-12-30] MEDS ORDERED: Dextrose 50% Abboject 50 ML SYRINGE ONE (21:22)
[2021-12-30 21:43] LABS: Lactic Acid 7.9 mmol/L (0.5-2.2)
[2021-12-31] MEDS ORDERED: Cefepime 1 GM in Sodium Chloride 0.9% 100 ML IVPB SCH (00:45)
[2021-12-31] MEDS ORDERED: NOREPINEPHRINE 8 MG/250 ML-D5W 250 ML ONE (01:39)
[2021-12-31] MEDS ORDERED: Albumin 25% 100 ML ONE (01:41)
[2021-12-31] MEDS ORDERED: Cefepime 1 GM VIAL ONE (01:54)
[2021-12-31] MEDS: Pantoprazole 40 MG VIAL IVP SCH ×3 (03:45→20:06)
[2021-12-31] MEDS: Rifaximin 550 MG TAB PO SCH ×3 (03:45→20:30)
[2021-12-31] MEDS: Simvastatin 10 MG TAB PO SCH ×2 (03:45→20:30)
[2021-12-31] MEDS: Dextrose 10% in Water 1,000 ML IV SCH (03:48)
[2021-12-31] MEDS ORDERED: Vancomycin Hemodialysis Sliding Scale FS SCH ×2 (04:00)
[2021-12-31 05:13] LABS: SARS-CoV-2 NAA Rapid Test Not Detected (NotDetected)
[2021-12-31 05:21] LABS: Hemoglobin 9.2 g/dL (12.0-15.5); Mean Corpuscular HGB CONC 34.7 g/dL (32.0-36.0); Mean Corpuscular Hemoglobin 29.9 pg (27.0-33.0); Mean Platelet Volume 11.7 fl (7.4-10.4); Platelet Count 67 10x3/uL (150-450); RBC Distribution Width 16.9 % (11.5-14.5); Red Blood Cell (RBC) Count 3.08 10x6/uL (3.90-5.03); White Blood Cell (WBC) Count 15.6 10x3/uL (3.5-10.5)
[2021-12-31 05:34] LABS: AST (SGOT) 72 U/L (5-34); Bilirubin, Total 11.2 mg/dL (0.2-1.2); Calcium 9.1 mg/dL (7.8-10.44); Chloride 103 mmol/L (98-107); Potassium 4.1 mmol/L (3.5-5.1); Sodium 134 mmol/L (136-145)
[2021-12-31 05:41] LABS: INR-International Normal Ratio 2.5; Prothrombin Time 25.6 sec (9.5-12.1)
[2021-12-31 05:44] LABS: PTT 78.9 sec (22.0-33.0)
[2021-12-31 05:57] LABS: ALT (SGPT) 40 U/L (8-55); Albumin 1.7 g/dL (3.4-4.8); Alkaline Phosphatase 147 U/L (40-110); BUN (Urea Nitrogen) 30 mg/dL (9.8-20.1); Calc. Creatinine Clearance 7 mL/min (70-130); Carbon Dioxide 17 mmol/L (23-31); Estimated GFR 5; Globulin 3.8 g/dL (2.4-3.5); Glucose 172 mg/dL (83-110); MDiff Complete? YES; Platelet Morphology Comment Appears Decreased; Protein, Total 5.5 g/dL (5.8-8.1)
[2021-12-31 06:00] LABS: Band 21 % (5-11); Lymphocytes 4 % (21-51); Metamyelocyte 2 % (0-0); Monocytes 6 % (0-10); Neutrophil 67 % (42-75)
[2021-12-31 06:02] LABS: Anisocytosis SLIGHT = 6-15 cells (100X) (0-5/hpf); Hypochromia SLIGHT = 6-15 cells (100X) (0-5/hpf); Target Cells SLIGHT = 2-5 cells (100X) (0-1/hpf)
[2021-12-31 06:03] LABS: Anion Gap 18 mmol/L (10-20)
[2021-12-31 06:06] LABS: Hep B Surf Ag Non-Reactive S/CO (NonReactive)
[2021-12-31 06:08] LABS: HBSAg Index 0.24 S/CO (0-0.99)
[2021-12-31 06:18] LABS: CKMB 9.1 ng/mL (0-6.6)
[2021-12-31] MEDS: Levothyroxine Sodium 75 MCG TAB PO SCH (06:18)
[2021-12-31] MEDS: Albumin 25% 25 GM/100 ML BOT IVPB SCH ×3 (08:40→20:06)
[2021-12-31] MEDS: Folic Acid 1 MG TAB PO SCH (08:40)
[2021-12-31] MEDS ORDERED: EPOETIN ALFA-EPBX (ESRD) 4,000 UNIT/ML VIAL SC SCH (09:00)
[2021-12-31] MEDS ORDERED: Rifaximin 550 MG TAB PO SCH (09:00)
[2021-12-31] MEDS ORDERED: Vancomycin 1 GM in Premix Bag 1 BAG IVPB SCH (09:00)
[2021-12-31 10:31] LABS: Lactic Acid 6.2 mmol/L (0.5-2.2)
[2021-12-31 10:36] LABS: ALT (SGPT) 61 U/L (8-55); AST (SGOT) 111 U/L (5-34); Albumin 2.4 g/dL (3.4-4.8); Alkaline Phosphatase 163 U/L (40-110); Anion Gap 23 mmol/L (10-20); BUN (Urea Nitrogen) 25 mg/dL (9.8-20.1); Bilirubin, Total 14.9 mg/dL (0.2-1.2); CK (CPK) 212 U/L (29-168); Calc. Creatinine Clearance 8 mL/min (70-130); Carbon Dioxide 13 mmol/L (23-31); Chloride 102 mmol/L (98-107); Estimated GFR 7; Globulin 4.2 g/dL (2.4-3.5); Glucose 156 mg/dL (83-110); Potassium 4.3 mmol/L (3.5-5.1); Protein, Total 6.6 g/dL (5.8-8.1); Sodium 134 mmol/L (136-145)
[2021-12-31] MEDS: NOREPINEPHRINE 8 MG/250 ML-D5W 250 ML IVPB SCH (12:00)
[2021-12-31 12:47] LABS: Hemoglobin A1c 4.4 % (4.0-6.0)
[2021-12-31] MEDS: Folic Acid/Vit B Comp W-C PO SCH (14:37)
[2021-12-31 16:18] LABS: HBSAB Concentration 319.06 mIU/mL; Hep B Surf AB Reactive (NonReactive)
[2021-12-31] MEDS: Cefepime 0.5 GM in Sodium Chloride 0.9% 100 ML IVPB SCH (20:30)
[2022-01-01] MEDS: NOREPINEPHRINE 8 MG/250 ML-D5W 250 ML IVPB SCH ×4 (00:29→21:23)
[2022-01-01] MEDS: Dextrose 10% in Water 1,000 ML IV SCH (02:00)
[2022-01-01 04:08] LABS: Hemoglobin 9.6 g/dL (12.0-15.5); Mean Corpuscular HGB CONC 35.4 g/dL (32.0-36.0); Mean Corpuscular Hemoglobin 30.5 pg (27.0-33.0); Mean Platelet Volume 12.4 fl (7.4-10.4); Platelet Count 77 10x3/uL (150-450); RBC Distribution Width 17.1 % (11.5-14.5); Red Blood Cell (RBC) Count 3.15 10x6/uL (3.90-5.03); White Blood Cell (WBC) Count 22.8 10x3/uL (3.5-10.5)
[2022-01-01 04:18] LABS: MDiff Complete? YES
[2022-01-01 04:20] LABS: ALT (SGPT) 59 U/L (8-55); AST (SGOT) 72 U/L (5-34); Albumin 2.4 g/dL (3.4-4.8); Alkaline Phosphatase 128 U/L (40-110); Anion Gap 23 mmol/L (10-20); BUN (Urea Nitrogen) 28 mg/dL (9.8-20.1); Bilirubin, Total 14.1 mg/dL (0.2-1.2); Calc. Creatinine Clearance 8 mL/min (70-130); Calcium 8.9 mg/dL (7.8-10.44); Carbon Dioxide 15 mmol/L (23-31); Chloride 99 mmol/L (98-107); Estimated GFR 6; Globulin 3.6 g/dL (2.4-3.5); Glucose 134 mg/dL (83-110); Potassium 4.8 mmol/L (3.5-5.1); Sodium 132 mmol/L (136-145)
[2022-01-01 04:21] LABS: Lactic Acid 8.4 mmol/L (0.5-2.2)
[2022-01-01 05:11] LABS: Band 15 % (5-11); Eosinophils 3 % (0-10); Lymphocytes 6 % (21-51); Monocytes 5 % (0-10); Neutrophil 70 % (42-75); Reactive Lymphocytes 1 % (0-10)
[2022-01-01 05:14] LABS: Platelet Morphology Comment Appears Decreased; Target Cells SLIGHT = 2-5 cells (100X) (0-1/hpf)
[2022-01-01 05:15] LABS: Hypochromia SLIGHT = 6-15 cells (100X) (0-5/hpf); Macrocytosis SLIGHT = 6-15 cells (100X) (0-5/hpf)
[2022-01-01] MEDS: Levothyroxine Sodium 75 MCG TAB PO SCH (06:03)
[2022-01-01] MEDS: Albumin 25% 25 GM/100 ML BOT IVPB SCH (07:41)
[2022-01-01 08:11] LABS: Vancomycin, Random 12.8 ug/mL (See Comment)
[2022-01-01] MEDS: Pantoprazole 40 MG VIAL IVP SCH ×2 (08:22→19:38)
[2022-01-01] MEDS: Folic Acid 1 MG TAB PO SCH (08:22)
[2022-01-01] MEDS ORDERED: Albumin 25% 25 GM/100 ML BOT IVPB SCH (09:00)
[2022-01-01] MEDS: Rifaximin 550 MG TAB PO SCH ×2 (10:29→19:38)
[2022-01-01] MEDS ORDERED: Lidocaine 1% PF 5 ML VIAL ONE (10:33)
[2022-01-01] MEDS ORDERED: Sodium Bicarbonate 2.5 MEQ/5 ML VIAL ONE (10:33)
[2022-01-01] MEDS: Folic Acid/Vit B Comp W-C PO SCH ×2 (10:52→11:01)
[2022-01-01 14:09] LABS: BF Color Brown; Body Fluid Source Ascites Body Fluid; Clarity Cloudy/Turbid (Clear)
[2022-01-01 14:11] LABS: Tube # EDTA
[2022-01-01 15:38] LABS: Lymphocytes 3 %
[2022-01-01 15:39] LABS: BF Segmented Neutrophils 94 %; Cell Count Non Hematic 3 %
[2022-01-01] MEDS ORDERED: Vancomycin HCl 500 MG in Sodium Chloride 0.9% 100 ML IVPB SCH (17:00)
[2022-01-01] MEDS: Simvastatin 10 MG TAB PO SCH (19:38)
[2022-01-01] MEDS: Cefepime 0.5 GM in Sodium Chloride 0.9% 100 ML IVPB SCH (21:23)
[2022-01-02] MEDS: NOREPINEPHRINE 8 MG/250 ML-D5W 250 ML IVPB SCH ×4 (01:27→18:10)
[2022-01-02 04:22] LABS: Hemoglobin 9.3 g/dL (12.0-15.5); Mean Corpuscular Hemoglobin 30.8 pg (27.0-33.0); Mean Corpuscular Volume 85.4 fl (81.6-98.3); Mean Platelet Volume 12.2 fl (7.4-10.4); Platelet Count 81 10x3/uL (150-450); RBC Distribution Width 17.1 % (11.5-14.5); Red Blood Cell (RBC) Count 3.02 10x6/uL (3.90-5.03); White Blood Cell (WBC) Count 22.9 10x3/uL (3.5-10.5)
[2022-01-02 04:23] LABS: Lactic Acid 9.8 mmol/L (0.5-2.2)
[2022-01-02 04:25] LABS: ALT (SGPT) 62 U/L (8-55); AST (SGOT) 91 U/L (5-34); Albumin 2.6 g/dL (3.4-4.8); Alkaline Phosphatase 131 U/L (40-110); Anion Gap 22 mmol/L (10-20); BUN (Urea Nitrogen) 13 mg/dL (9.8-20.1); Bilirubin, Total 14.2 mg/dL (0.2-1.2); Calc. Creatinine Clearance 15 mL/min (70-130); Calcium 8.4 mg/dL (7.8-10.44); Carbon Dioxide 19 mmol/L (23-31); Chloride 97 mmol/L (98-107); Estimated GFR 13; Globulin 3.1 g/dL (2.4-3.5); Glucose 109 mg/dL (83-110); Protein, Total 5.7 g/dL (5.8-8.1); Sodium 134 mmol/L (136-145)
[2022-01-02] MEDS: Levothyroxine Sodium 75 MCG TAB PO SCH (05:37)
[2022-01-02 06:06] LABS: MDiff Complete? YES
[2022-01-02 06:26] LABS: Band 6 % (5-11); Lymphocytes 2 % (21-51); Monocytes 7 % (0-10); Neutrophil 85 % (42-75)
[2022-01-02 06:27] LABS: Hypochromia SLIGHT = 6-15 cells (100X) (0-5/hpf); Polychromasia SLIGHT = 2-3 cells (100X) (0-2/hpf)
[2022-01-02 06:28] LABS: Platelet Morphology Comment Appears Decreased; Target Cells SLIGHT = 2-5 cells (100X) (0-1/hpf)
[2022-01-02] MEDS ORDERED: Meropenem 1 GM in Sodium Chloride 0.9% 100 ML IVPB SCH (08:15)
[2022-01-02] MEDS: Folic Acid 1 MG TAB PO SCH (08:26)
[2022-01-02] MEDS: Folic Acid/Vit B Comp W-C PO SCH (08:26)
[2022-01-02] MEDS: Pantoprazole 40 MG VIAL IVP SCH ×2 (08:26→20:08)
[2022-01-02] MEDS: Rifaximin 550 MG TAB PO SCH ×3 (10:04→20:20)
[2022-01-02] MEDS: Albumin 25% 25 GM/100 ML BOT IVPB SCH ×3 (10:04→21:23)
[2022-01-02] MEDS ORDERED: Dextrose 5% in Water 1,000 ML ONE (11:52)
[2022-01-02] MEDS: Dextrose 50% Abboject 50 ML SYRINGE SLOW IVP PRN (11:52)
[2022-01-02] MEDS ORDERED: Meropenem 500 MG in Sodium Chloride 0.9% 100 ML IVPB SCH (16:15)
[2022-01-02] MEDS: Simvastatin 10 MG TAB PO SCH ×2 (20:09→20:21)
[2022-01-03] MEDS: NOREPINEPHRINE 8 MG/250 ML-D5W 250 ML IVPB SCH ×6 (00:01→23:32)
[2022-01-03 04:17] LABS: Hemoglobin 8.8 g/dL (12.0-15.5); Mean Corpuscular HGB CONC 34.1 g/dL (32.0-36.0); Mean Corpuscular Hemoglobin 30.7 pg (27.0-33.0); Mean Corpuscular Volume 89.9 fl (81.6-98.3); Mean Platelet Volume 12.1 fl (7.4-10.4); Platelet Count 72 10x3/uL (150-450); RBC Distribution Width 16.8 % (11.5-14.5); Red Blood Cell (RBC) Count 2.87 10x6/uL (3.90-5.03); White Blood Cell (WBC) Count 27.5 10x3/uL (3.5-10.5)
[2022-01-03 04:26] LABS: ALT (SGPT) 115 U/L (8-55); AST (SGOT) 346 U/L (5-34); Albumin 3.3 g/dL (3.4-4.8); Alkaline Phosphatase 145 U/L (40-110); BUN (Urea Nitrogen) 16 mg/dL (9.8-20.1); Bilirubin, Total 13.5 mg/dL (0.2-1.2); Calc. Creatinine Clearance 13 mL/min (70-130); Calcium 9.2 mg/dL (7.8-10.44); Chloride 95 mmol/L (98-107); Estimated GFR 11; Globulin 2.7 g/dL (2.4-3.5); Glucose 130 mg/dL (83-110); Potassium 4.6 mmol/L (3.5-5.1); Sodium 128 mmol/L (136-145)
[2022-01-03 04:28] LABS: Carbon Dioxide Less than 8 mmol/L (23-31)
[2022-01-03] MEDS: Levothyroxine Sodium 75 MCG TAB PO SCH (05:30)
[2022-01-03 06:06] LABS: Actual Bicarbonate (HCO3a) 11.3 mEq/L (22-28); Base Excess (BEa) -22.1 mEq/L (-2.0 to +3.0); CO2 Tension 71.9 mmHg (35.0-45.0); Calcium, Ionized (arterial) 1.13 mmol/L (1.12-1.30); Carboxyhemoglobin (COHb) 1.8 gm% (0.0-3.0); Hemoglobin (Hb) 8.3 g/dL (12.0-16.0); O2 Tension (PaO2), arterial 115.7 mmHg (> 70.0); Potassium - ABG Lab 4.4 mmol/L (3.70-5.30); Puncture Site RRA; pH, Arterial 6.81 (7.35-7.45)
[2022-01-03 06:09] LABS: ALV-art Gradient 507.425 mmHg (0-20)
[2022-01-03 06:42] LABS: Band 15 % (5-11); Lymphocytes 2 % (21-51); Monocytes 5 % (0-10); Nucleated RBC 3 % (0)
[2022-01-03 06:45] LABS: Hypochromia SLIGHT = 6-15 cells (100X) (0-5/hpf); Macrocytosis SLIGHT = 6-15 cells (100X) (0-5/hpf); Platelet Morphology Comment Appears Decreased; Target Cells SLIGHT = 2-5 cells (100X) (0-1/hpf)
[2022-01-03] MEDS: Vasopressin 20 UNIT, Admixture Fee 1 EACH in Sodium Chloride 0.9% 50 ML IV SCH ×3 (06:45→23:28)
[2022-01-03] MEDS: Sodium Bicarbonate 75 MEQ, Admixture Fee 1 EACH in Dextrose 5% in Water 500 ML IV SCH ×2 (06:50→07:56)
[2022-01-03] MEDS ORDERED: Sodium Bicarb 50 MEQ/50 ML VIAL ONE (06:56)
[2022-01-03] MEDS ORDERED: Sodium Bicarb 50 MEQ/50 ML VIAL IVP SCH ×2 (07:00→07:15)
[2022-01-03 07:01] LABS: Neutrophil 78 % (42-75)
[2022-01-03 07:03] LABS: MDiff Complete? YES
[2022-01-03 07:13] LABS: Vancomycin, Random 11.7 ug/mL (See Comment)
[2022-01-03] MEDS: Albumin 25% 25 GM/100 ML BOT IVPB SCH ×2 (07:13→07:56)
[2022-01-03] MEDS ORDERED: Lorazepam 2 MG/ML VIAL SLOW IVP PRN (08:00)
[2022-01-03] MEDS ORDERED: DISCONTINUE PREVIOUS NARCOTIC PAIN MEDICATIONS AND BENZODIAZEPINES FS SCH (08:00)
[2022-01-03] MEDS ORDERED: Morphine 2 MG/ML VIAL SLOW IVP PRN (08:00)
[2022-01-03] MEDS ORDERED: Fentanyl BOLUS 250 ML IVPB PRN (08:00)
[2022-01-03] MEDS ORDERED: Propofol 1,000 MG/100 ML VIAL IV PRN (08:00)
[2022-01-03] MEDS ORDERED: Propofol BOLUS 1,000 MG/100 ML VIAL IV PRN (08:00)
[2022-01-03] MEDS: fentaNYL Citrate-0.9 % NaCl/PF 100 ML IVPB SCH ×2 (08:41→22:20)
[2022-01-03 09:06] LABS: Actual Bicarbonate (HCO3v) 15 mEq/L (22-28); Base Excess -10.2 mEq/L (-2.0 to +3.0); Chloride (VBG) 88 mmol/L (98-106); Hemoglobin (Hb) 7.1 g/dL (11.7-16.1); Potassium (VBG) 3.88 mmol/L (3.70-5.30); Puncture Site Other Site; Sodium 127.2 mmol/L (133-146)
[2022-01-03] MEDS: Rifaximin 550 MG TAB PO SCH ×2 (09:14→20:32)
[2022-01-03] MEDS: Folic Acid/Vit B Comp W-C PO SCH (09:14)
[2022-01-03] MEDS: Pantoprazole 40 MG VIAL IVP SCH ×2 (09:14→20:32)
[2022-01-03] MEDS: Folic Acid 1 MG TAB PO SCH (09:14)
[2022-01-03] MEDS: Meropenem 500 MG in Sodium Chloride 0.9% 100 ML IVPB SCH (16:03)
[2022-01-03] MEDS ORDERED: Vancomycin HCl 500 MG in Sodium Chloride 0.9% 100 ML IVPB SCH (17:00)
[2022-01-03 18:27] LABS: Glucose 48 mg/dL (83-110)
[2022-01-03] MEDS: Dextrose 50% Abboject 50 ML SYRINGE SLOW IVP PRN (18:30)
[2022-01-03 19:09] LABS: Glucose 129 mg/dL (83-110)
[2022-01-03 19:15] LABS: Phosphorus 3.4 mg/dL (2.3-4.7)
[2022-01-03 19:16] LABS: ALT (SGPT) 525 U/L (8-55); AST (SGOT) 2053 U/L (5-34); Alkaline Phosphatase 153 U/L (40-110); Anion Gap 29 mmol/L (10-20); BUN (Urea Nitrogen) 7 mg/dL (9.8-20.1); Bilirubin, Total 13.1 mg/dL (0.2-1.2); Calc. Creatinine Clearance 24 mL/min (70-130); Calcium 8.7 mg/dL (7.8-10.44); Carbon Dioxide 12 mmol/L (23-31); Chloride 96 mmol/L (98-107); Estimated GFR 23; Globulin 1.9 g/dL (2.4-3.5); Glucose 130 mg/dL (83-110); Magnesium 1.7 mg/dL (1.6-2.6); Potassium 3.2 mmol/L (3.5-5.1); Protein, Total 4.9 g/dL (5.8-8.1); Sodium 134 mmol/L (136-145)
[2022-01-03 19:29] LABS: Hemoglobin 6.4 g/dL (12.0-15.5); Mean Corpuscular Hemoglobin 31.4 pg (27.0-33.0); Mean Corpuscular Volume 87.3 fl (81.6-98.3); Mean Platelet Volume 11.1 fl (7.4-10.4); Platelet Count 48 10x3/uL (150-450); RBC Distribution Width 16.6 % (11.5-14.5); Red Blood Cell (RBC) Count 2.04 10x6/uL (3.90-5.03); White Blood Cell (WBC) Count 14.4 10x3/uL (3.5-10.5)
[2022-01-03 19:33] LABS: Troponin I 0.934 ng/mL (< 0.028)
[2022-01-03 20:17] LABS: Band 7 % (5-11); Lymphocytes 3 % (21-51); MDiff Complete? YES; Monocytes 9 % (0-10); Neutrophil 81 % (42-75)
[2022-01-03 20:18] LABS: Anisocytosis MODERATE=16-30 cells (100X) (0-5/hpf); Dohle Bodies SLIGHT; Hypochromia MODERATE=16-30 cells (100X) (0-5/hpf); Macrocytosis SLIGHT = 6-15 cells (100X) (0-5/hpf); Microcytosis SLIGHT = 6-15 cells (100X) (0-5/hpf); Target Cells MODERATE= 6-15 cells (100X) (0-1/hpf); Toxic Granulation SLIGHT; Vacuoles MODERATE
[2022-01-03 20:19] LABS: Large Platelets SLIGHT; Platelet Morphology Comment Appears Decreased
[2022-01-03] MEDS: Simvastatin 10 MG TAB PO SCH (20:33)
[2022-01-03] MEDS: Hydrocortisone Sod Succ/PF 100 mg/2 ml Vial IVP SCH (21:05)
[2022-01-04 01:03] VITALS: TEMP 97.8
[2022-01-04 01:56] LABS: Troponin I 2.018 ng/mL (< 0.028)
[2022-01-04] MEDS: NOREPINEPHRINE 8 MG/250 ML-D5W 250 ML IVPB SCH ×4 (04:18→20:15)
[2022-01-04 04:20] LABS: Hemoglobin 7.8 g/dL (12.0-15.5); Mean Corpuscular HGB CONC 34.5 g/dL (32.0-36.0); Mean Corpuscular Hemoglobin 30.8 pg (27.0-33.0); Mean Corpuscular Volume 89.3 fl (81.6-98.3); Platelet Count 46 10x3/uL (150-450); RBC Distribution Width 16.6 % (11.5-14.5); Red Blood Cell (RBC) Count 2.53 10x6/uL (3.90-5.03); White Blood Cell (WBC) Count 19.7 10x3/uL (3.5-10.5)
[2022-01-04 04:22] LABS: ALT (SGPT) 760 U/L (8-55); AST (SGOT) 3027 U/L (5-34); Albumin 2.9 g/dL (3.4-4.8); Alkaline Phosphatase 230 U/L (40-110); Anion Gap 34 mmol/L (10-20); BUN (Urea Nitrogen) 8 mg/dL (9.8-20.1); Bilirubin, Total 14.7 mg/dL (0.2-1.2); Calc. Creatinine Clearance 20 mL/min (70-130); Chloride 95 mmol/L (98-107); Estimated GFR 19; Globulin 2.1 g/dL (2.4-3.5); Potassium 3.9 mmol/L (3.5-5.1); Sodium 134 mmol/L (136-145)
[2022-01-04 04:29] LABS: Carbon Dioxide 9 mmol/L (23-31); Glucose 43 mg/dL (83-110); Troponin I 2.583 ng/mL (< 0.028)
[2022-01-04] MEDS: Dextrose 50% Abboject 50 ML SYRINGE SLOW IVP PRN (04:32)
[2022-01-04 04:53] VITALS: BMI 28.7
[2022-01-04 05:00] LABS: Band 29 % (5-11); Lymphocytes 1 % (21-51); Monocytes 9 % (0-10); Nucleated RBC 5 % (0)
[2022-01-04 05:02] LABS: Anisocytosis MODERATE=16-30 cells (100X) (0-5/hpf); Hypochromia MODERATE=16-30 cells (100X) (0-5/hpf); MDiff Complete? YES; Macrocytosis SLIGHT = 6-15 cells (100X) (0-5/hpf); Microcytosis SLIGHT = 6-15 cells (100X) (0-5/hpf); Neutrophil 61 % (42-75)
[2022-01-04 05:03] LABS: Platelet Morphology Comment Appears Decreased; Target Cells SLIGHT = 2-5 cells (100X) (0-1/hpf); Toxic Granulation SLIGHT; Vacuoles SLIGHT
[2022-01-04] MEDS: Levothyroxine Sodium 75 MCG TAB PO SCH (05:47)
[2022-01-04] MEDS: Hydrocortisone Sod Succ/PF 100 mg/2 ml Vial IVP SCH ×3 (05:47→20:37)
[2022-01-04] MEDS ORDERED: Sodium Bicarb 50 MEQ/50 ML VIAL ONE (06:50)
[2022-01-04] MEDS ORDERED: Sodium Bicarb 50 MEQ/50 ML VIAL IVP SCH (07:00)
[2022-01-04] MEDS: Sodium Bicarbonate 75 MEQ, Admixture Fee 1 EACH in Dextrose 5% in Water 500 ML IV SCH ×2 (07:45→18:36)
[2022-01-04] MEDS: Pantoprazole 40 MG VIAL IVP SCH ×2 (08:16→20:37)
[2022-01-04] MEDS: Folic Acid/Vit B Comp W-C PO SCH (08:17)
[2022-01-04] MEDS: Folic Acid 1 MG TAB PO SCH (08:17)
[2022-01-04] MEDS: Rifaximin 550 MG TAB PO SCH ×2 (08:17→20:37)
[2022-01-04] MEDS: Vasopressin 20 UNIT, Admixture Fee 1 EACH in Sodium Chloride 0.9% 50 ML IV SCH ×2 (09:41→18:29)
[2022-01-04] MEDS: Meropenem 500 MG in Sodium Chloride 0.9% 100 ML IVPB SCH (16:36)
[2022-01-04] MEDS: Simvastatin 10 MG TAB PO SCH (20:37)
[2022-01-05] MEDS: NOREPINEPHRINE 8 MG/250 ML-D5W 250 ML IVPB SCH ×3 (00:21→11:19)
[2022-01-05] MEDS: Vasopressin 20 UNIT, Admixture Fee 1 EACH in Sodium Chloride 0.9% 50 ML IV SCH (00:39)
[2022-01-05 02:39] LABS: Magnesium 2.3 mg/dL (1.6-2.6); Mean Corpuscular HGB CONC 32.3 g/dL (32.0-36.0); Mean Corpuscular Hemoglobin 30.9 pg (27.0-33.0); Mean Corpuscular Volume 95.9 fl (81.6-98.3); Mean Platelet Volume 11.3 fl (7.4-10.4); Platelet Count 39 10x3/uL (150-450); RBC Distribution Width 17.1 % (11.5-14.5); Red Blood Cell (RBC) Count 1.94 10x6/uL (3.90-5.03); White Blood Cell (WBC) Count 29.2 10x3/uL (3.5-10.5)
[2022-01-05 02:48] LABS: ALT (SGPT) 1009 U/L (8-55); AST (SGOT) Greater than 3500 U/L (5-34); Albumin 2.1 g/dL (3.4-4.8); Alkaline Phosphatase 314 U/L (40-110); BUN (Urea Nitrogen) 9 mg/dL (9.8-20.1); Calc. Creatinine Clearance 17 mL/min (70-130); Calcium 9.1 mg/dL (7.8-10.44); Carbon Dioxide Less than 8 mmol/L (23-31); Chloride 90 mmol/L (98-107); Estimated GFR 13; Globulin 1.9 g/dL (2.4-3.5); Glucose 62 mg/dL (83-110); Potassium 5.9 mmol/L (3.5-5.1); Sodium 130 mmol/L (136-145)
[2022-01-05 02:51] LABS: MDiff Complete? YES
[2022-01-05 02:58] LABS: Band 30 % (5-11); Lymphocytes 4 % (21-51); Metamyelocyte 10 % (0-0); Monocytes 6 % (0-10); Myelocyte 1 % (0-0); Neutrophil 49 % (42-75); Nucleated RBC 17 % (0)
[2022-01-05 03:00] LABS: Anisocytosis MODERATE=16-30 cells (100X) (0-5/hpf); Hypochromia MODERATE=16-30 cells (100X) (0-5/hpf); Macrocytosis SLIGHT = 6-15 cells (100X) (0-5/hpf); Microcytosis SLIGHT = 6-15 cells (100X) (0-5/hpf)
[2022-01-05 03:01] LABS: Ovalocytes SLIGHT = 2-5 cells (100X) (0-1/hpf); Platelet Morphology Comment Appears Decreased
[2022-01-05] MEDS: Albuterol Sulfate 2.5 mg/3 ml Neb ONE ×4 (03:43→03:48)
[2022-01-05] MEDS ORDERED: Calcium Gluconate 4.6 MEQ in Sodium Chloride 0.9% 100 ML IVPB SCH (03:45)
[2022-01-05] MEDS ORDERED: Albuterol Sulfate 2.5 mg/3 ml Neb NEB SCH (03:45)
[2022-01-05] MEDS ORDERED: Dextrose 50% Abboject 50 ML SYRINGE SLOW IVP SCH (03:45)
[2022-01-05] MEDS ORDERED: Insulin Regular 300 UNITS/3 ML VIAL SC SCH (03:45)
[2022-01-05] MEDS: Levothyroxine Sodium 75 MCG TAB PO SCH (04:49)
[2022-01-05] MEDS: Hydrocortisone Sod Succ/PF 100 mg/2 ml Vial IVP SCH (04:49)
[2022-01-05] MEDS: EPINEPHrine 4 MG, Admixture Fee 1 EACH in Dextrose 5% in Water 250 ML IV SCH ×2 (04:51→11:55)
[2022-01-05 06:57] LABS: Vancomycin, Random 10.4 ug/mL (See Comment)
[2022-01-05] MEDS ORDERED: Sodium Bicarb 50 MEQ/50 ML VIAL IVP STA (07:17)
[2022-01-05 08:48] LABS: BUN (Urea Nitrogen) 9 mg/dL (9.8-20.1); Calc. Creatinine Clearance 17 mL/min (70-130); Calcium 9.5 mg/dL (7.8-10.44); Chloride 92 mmol/L (98-107); Estimated GFR 13; Glucose 137 mg/dL (83-110); Magnesium 2.7 mg/dL (1.6-2.6); Sodium 129 mmol/L (136-145)
[2022-01-05 08:51] LABS: Carbon Dioxide Less than 8 mmol/L (23-31); Potassium 6.9 mmol/L (3.5-5.1)
[2022-01-05] MEDS ORDERED: Insulin Regular 300 UNITS/3 ML VIAL IVP SCH (09:15)
[2022-01-05] MEDS: Albumin 25% 25 GM/100 ML BOT IVPB SCH ×3 (09:56→12:11)
[2022-01-05] MEDS: Folic Acid 1 MG TAB PO SCH (09:56)
[2022-01-05] MEDS: Pantoprazole 40 MG VIAL IVP SCH (09:58)
[2022-01-05] MEDS: Rifaximin 550 MG TAB PO SCH (10:28)
[2022-01-05] MEDS: Folic Acid/Vit B Comp W-C PO SCH (10:31)
[2022-01-05] MEDS ORDERED: Sodium Bicarbonate 150 MEQ, Admixture Fee 1 EACH in Dextrose 5% in Water 1,000 ML IV SCH (11:15)
[2022-01-05] MEDS ORDERED: Albumin 25% 100 ML ONE (11:54)
[2022-01-05 14:35] LABS: CO2 Tension 29.6 mmHg (35.0-45.0); Calcium, Ionized (arterial) 1.45 mmol/L (1.12-1.30); Carboxyhemoglobin (COHb) 0.5 gm% (0.0-3.0); O2 Tension (PaO2), arterial 317.5 mmHg (> 70.0); Potassium - ABG Lab 6.5 mmol/L (3.70-5.30); Puncture Site Other Site
[2022-01-05 15:50] VITALS: BP 96/49
[2022-01-05] MEDS ORDERED: Vancomycin HCl 500 MG in Sodium Chloride 0.9% 100 ML IVPB SCH (17:00)
[2022-01-07] MEDS ORDERED: EPOETIN ALFA-EPBX (ESRD) 4,000 UNIT/ML VIAL SC SCH (09:00)
== END 2022-01-05 16:15 | disposition expired | DRG 871 ==
LOC: CSHERS 17:38 → CSHICU 20:02 → UNDOADMIN 12-31 03:30 → CSHICU 12-31 03:30
PROVIDERS: ADMIT Student in an Organized Health Care Education/Training Program; ATTEND Internal Medicine
PROC: 3E033XZ Introduction of Vasopressor into Peripheral Vein, Percutaneous Approach (ICD-10-PCS; 2021-12-31)
PROC: 5A1D70Z Performance of Urinary Filtration, Intermittent, Less than 6 Hours Per Day (ICD-10-PCS; 2021-12-31)
PROC: 0W9G3ZZ Drainage of Peritoneal Cavity, Percutaneous Approach (ICD-10-PCS; principal; 2022-01-01)
PROC: 5A1D70Z Performance of Urinary Filtration, Intermittent, Less than 6 Hours Per Day (ICD-10-PCS; 2022-01-01)
PROC: 02H633Z Insertion of Infusion Device into Right Atrium, Percutaneous Approach (ICD-10-PCS; 2022-01-02)
PROC: 5A1945Z Respiratory Ventilation, 24-96 Consecutive Hours (ICD-10-PCS; 2022-01-03)
PROC: 0BH18EZ Insertion of Endotracheal Airway into Trachea, Via Natural or Artificial Opening Endoscopic (ICD-10-PCS; 2022-01-03)
PROC: 30233N1 Transfusion of Nonautologous Red Blood Cells into Peripheral Vein, Percutaneous Approach (ICD-10-PCS; 2022-01-03)
PROC: 5A1D70Z Performance of Urinary Filtration, Intermittent, Less than 6 Hours Per Day (ICD-10-PCS; 2022-01-03)
PROC: 5A1D70Z Performance of Urinary Filtration, Intermittent, Less than 6 Hours Per Day (ICD-10-PCS; 2022-01-05)
DX: A41.89 Other specified sepsis (principal); N18.6 End stage renal disease; I81 Portal vein thrombosis; R65.21 Severe sepsis with septic shock; G93.41 Metabolic encephalopathy; K65.2 Spontaneous bacterial peritonitis; J96.01 Acute respiratory failure with hypoxia; K72.00 Acute and subacute hepatic failure without coma; K76.6 Portal hypertension; C22.0 Liver cell carcinoma; D61.818 Other pancytopenia; E87.1 Hypo-osmolality and hyponatremia; E87.2 Acidosis; R64 Cachexia; D68.9 Coagulation defect, unspecified; D62 Acute posthemorrhagic anemia; Z16.24 Resistance to multiple antibiotics; I12.0 Hypertensive chronic kidney disease with stage 5 chronic kidney disease or end stage renal disease; E78.5 Hyperlipidemia, unspecified; D63.1 Anemia in chronic kidney disease; E11.649 Type 2 diabetes mellitus with hypoglycemia without coma; E86.0 Dehydration; K70.31 Alcoholic cirrhosis of liver with ascites; E11.22 Type 2 diabetes mellitus with diabetic chronic kidney disease; K31.89 Other diseases of stomach and duodenum; E53.8 Deficiency of other specified B group vitamins; E88.09 Other disorders of plasma-protein metabolism, not elsewhere classified; E87.5 Hyperkalemia; K80.20 Calculus of gallbladder without cholecystitis without obstruction; Z51.5 Encounter for palliative care; Z66 Do not resuscitate; Z20.822 Contact with and (suspected) exposure to COVID-19; R57.8 Other shock; Z90.710 Acquired absence of both cervix and uterus; Z98.890 Other specified postprocedural states; Z87.891 Personal history of nicotine dependence; Z99.2 Dependence on renal dialysis; Z78.1 Physical restraint status; Z79.899 Other long term (current) drug therapy; Z79.4 Long term (current) use of insulin; I25.2 Old myocardial infarction; Z68.30 Body mass index [BMI] 30.0-30.9, adult
CPT/HCPCS: 36415; 36416; 36430; 36600; 49083; 71045; 74160; 76705; 80053; 80202; 82042; 82140; 82533; 82550; 82553; 82805; 83036; 83605; 83615; 83735; 83880; 84100; 84484; 85025; 85610; 85730; 86706; 86850; 86900; 86901; 86922; 87040; 87070; 87077; 87186; 87205; 87340; 88112; 88305; 89051; 90935; 93005; 93010; 93306; 94002; 94003; 94760; 96365; 96367; 96375; C9113; G0257; J0171; J0610; J0692; J1720; J1815; J2185; J3370; J3490; J7050; J7070; J7611; J7999; P9016; P9047; Q5105; Q9967; U0002